=== PATIENT | male | born 1980 | race Caucasian/White ===

== ENCOUNTER 2022-10-19 21:51 | Inpatient (IN) | payer MEDICARE, SELFPAY ==
[2022-10-19 22:01] VITALS: BP 186/97; BP 208/96; PULSE 100; PULSE 97; RESP 16; TEMP 37.3; O2SAT 98; BMI 34.6
[2022-10-19 22:15] LABS: Glucose, Whole Blood 435 mg/dL (60-115)
--- NOTE | 2022-10-19 22:17 | ECG_ITS ---
Test Reason : hypertensive Blood Pressure : / mmHG Vent. Rate : 095 BPM Atrial Rate : 095 BPM P-R Int : 150 ms QRS Dur : 084 ms QT Int : 332 ms P-R-T Axes : 069 -42 055 degrees QTc Int : 417 ms Normal sinus rhythm Left axis deviation Abnormal ECG No previous ECGs available Referred By: Sid Delgadillo Electronically Signed By:NATE CHAPMAN MD
[2022-10-19 22:27] LABS: MANUAL DIFF FLAG NO
--- NOTE | 2022-10-19 22:31 | ED.PSYCH ---
HPI - Psych General Chief Complaint: Psychiatric Symptoms Stated Complaint: crisis Time Seen by Provider: 10/19/22 22:21 Source: patient Mode of arrival: EMS Limitations: no limitations History of Present Illness HPI Narrative: 42-year-old male with history of diabetes mellitus, depression, anxiety, hypothyroidism on levothyroxine, autism who presents emergency department for evaluation of suicidal ideation x2 days. The patient states that he is from [facility]. He has been traveling by train. He states that he has not been taking his medications since 10/18/2022 -2 days. He states that he started to feel suicidal over the past 2 days. He told me that he feels like he blew it since he missed his train to get back to [facility].. He states that he does not want to do it anymore . He states that he has had suicidal ideation in the past but has never acted on these thoughts. He cannot identify a trigger to his SI. He states that he has depression he believes that his depression has gotten worse as well, he is feeling very anxious and nervous. He states he has been very thirsty and is also been urinating frequently. Related Data Home Medications Medication Instructions Recorded Confirmed amlodipine 10 mg tablet 10 mg PO DAILY 10/20/22 10/20/22 aripiprazole 400 mg suspension, 400 mg IM QMONTH 10/20/22 10/20/22 extended rel.intramuscular syringe (Roxana Kaplan) atorvastatin 20 mg tablet 20 mg PO DAILY 10/20/22 10/20/22 benztropine 0.5 mg tablet 0.5 mg PO BID 10/20/22 10/20/22 buspirone 10 mg tablet 10 mg PO BID 10/20/22 10/20/22 carvedilol 25 mg tablet 25 mg PO BID 10/20/22 10/20/22 divalproex 500 mg tablet,delayed 500 mg PO TID 10/20/22 10/20/22 release hydrochlorothiazide 25 mg tablet 25 mg PO DAILY 10/20/22 10/20/22 insulin glargine 100 unit/mL (3 See Rx Instructions .Route .COMPLEX 10/20/22 10/20/22 mL) subcutaneous pen (Basaglar Adeel U-100 Insulin) levothyroxine 75 mcg tablet 75 mcg PO DAILY 10/20/22 10/20/22 lisinopril 40 mg tablet 40 mg PO DAILY 10/20/22 10/20/22 metformin 1,000 mg tablet 1,000 mg PO DAILY 10/20/22 10/20/22 pantoprazole 40 mg tablet,delayed 40 mg PO DAILY 10/20/22 10/20/22 release trazodone 50 mg tablet 50 mg PO BEDTIME 10/20/22 10/20/22 Allergies Allergy/AdvReac Type Severity Reaction Status Date / Time penicillin G benzathine Allergy Rash Verified 10/19/22 22:10 Review of Systems Review of Systems: Yes all other systems are reviewed and are negative [facility] Past Medical History [facility] Narrative: Past medical history: Diabetes mellitus, depression, anxiety, hypothyroidism, autism. Social history: He denies tobacco use. He occasionally drinks alcohol but denies using alcohol this evening. Denies drug use. Social History Social History Advance Directives: No Advance Directives Information Provided: Yes Physical Exam Vital Signs: Vital Signs: Last Vital Signs Temp 97.7 F 10/20/22 01:18 Pulse 89 10/20/22 01:18 Resp 18 10/20/22 01:18 BP 147/91 H 10/20/22 01:18 Pulse Ox 97 10/20/22 01:18 O2 Del Method Room Air 10/20/22 01:18 BMI result Body Mass Index 34.6 Const: General: cooperative and no acute distress Orientation/consciousness: oriented to person and oriented to place Limitations: no limitations HEENT: Head: Yes normal to inspection, Yes normocephalic and Yes atraumatic Ears: external ears normal General nose exam: Normal external nose present Face and sinus: Yes normal facial exam Mouth: Normal oral and palatal mucosa present Throat: Yes posterior oropharynx normal Eyes: General: appearance normal, both eyes and all related structures Pupils: Equal, round and reactive pupils present Neck: Neck: Yes normal visual inspection, Yes no lymphadenopathy, Yes trachea midline and Yes supple Chest: Chest palpation & inspection: normal inspection of the chest and normal palpation of entire chest wall Resp: Effort & Inspection: normal respiratory effort and able to speak in complete sentences Auscultation: clear to auscultation bilaterally Cardio: Rate: regular rate Rhythm: regular rhythm Heart sounds: S1 normal heart sound present, S2 normal heart sound present and no murmurs GI: Inspection: Yes normal to inspection Palpation (GI): Soft to palpation, nontender and no guarding Auscultation: normal bowel sounds : General: Yes no CVA tenderness Back/Spine/Pelvis: Back: no CVA tenderness Skin: General skin exam: no rashes or lesions noted Neuro: General: oriented to person and oriented to place Cranial nerves: Yes CN's II-XII intact bilaterally and Yes Equal, round and reactive pupils present Cognition (Neuro): normal cognition Motor exam (neuro): 5/5 motor strength present throughout Extrem: General: Yes normal to inspection Psych: Appearance: grossly normal Speech and movement: Normal speech and movement present Affect: normal affect Attitude: cooperative Thought process: Normal thought process present Thought content: Suicidality present and no homicidality Medications Administered Discontinued Medications Generic Name Dose Route Start Last Admin Trade Name Aleksandar PRN Reason Stop Dose Admin Sodium Chloride 1,000 mls @ 999 mls/hr 10/19/22 22:32 10/20/22 01:24 Ns IV 10/19/22 23:32 Infused .Q1H1M STA Infusion Sodium Chloride 1,000 mls @ 999 mls/hr 10/19/22 22:32 10/20/22 01:25 Ns IV 10/19/22 23:32 Infused .Q1H1M STA Infusion Insulin Human Regular 10 unit 10/19/22 22:32 10/19/22 22:39 Insulin Regular, Human 100 Unit/Ml 3 Ml Vial IVPUSH 10/19/22 22:33 10 unit ONCE ONE Administration Medical Decision Making Medical Decision Making MDM Narrative: 42-year-old male who presents emergency department for evaluation increased depression and suicidal ideation. Patient has been noncompliant with his medications for 2 days. He states he has had suicidal ideation in the past but has never acted on these thoughts. He does not have a specific plan at this time. He states he is feeling depressed and anxious as well. Patient's from [facility] and has been troubling by train, he states that he feels upset that he missed his train back to [facility] but this is not the trigger for his suicidal ideation. I I ordered CBC, CMP, VBG, acetone, salicylate, acetaminophen, urinalysis, urine drug screen. Patient did have an elevated point of care glucose of 435. I ordered normal saline x2L and regular insulin 10 units IV. 0049 : The patient laboratory evaluation revealed a normal pH and normal bicarb which is reassuring rules out DKA. Patient's elevated glucose is most likely caused by noncompliance with medications and dehydration/ volume depletion. Patient was treated with normal saline IV x2 L and 10 units of regular insulin. Patient's repeat point of care glucose was 273. I will order the patient's outpatient medication regimen.This point I think that the patient is medically cleared To go into the emergency department [facility] for evaluation by the care team. Start physician observation: The patient will be kept in physician observation to see if his symptoms improve over time and also until he is evaluated by the care team to determine if he can be managed as an outpatient or needs to be admitted. 0247: Continue physician observation: I ordered when of care glucose before meals and bedtime to monitor the patient's glucose. Patient's medications were reconciled and these were ordered by me. Differential Diagnosis Differential diagnosis includes was not limited to depression, anxiety, suicidal ideation, metabolic disorder, hyperthyroidism, drug use, alcohol intoxication Admission/Observation Consideration of admission/observation: Escalation of care including admission/observation considered Consult Healthcare Provider Management of the patient was discussed with: Behavioral Health Provider Lab Data [facility] Lab Attestation statement: I reviewed the patient's lab results. my independent interpretation patient's laboratory evaluation as follows: CBC was normal. CMP revealed an elevated glucose of 415. PH was normal 7.43. Acetone small amount. Salicylate and acetaminophen were below detectable limits. Urinalysis and urine drug screen pending collection. TSH was normal at 2.91. 10/19/22 22:22 10/19/22 22:22 Labs: Lab Results 10/19/22 10/19/22 10/19/22 Range/Units 22:05 22:22 22:22 WBC 8.1 (4.8-10.8) X10*3/uL RBC 4.56 L (4.60-5.80) X10*6/uL Hgb 14.0 (14.0-18.0) g/dl Hct 38.2 L (42.0-52.0) % MCV 83.8 (80.0-98.0) fL MCH 30.7 (27.0-33.0) pg MCHC 36.6 H (31.0-36.0) g/dl RDW 11.8 (11.0-16.0) % Plt Count 256 (160-400) X10*3/uL MPV 11.0 (9.4-12.4) fL Immature Gran % (Auto) 0.5 H (0.0-0.4) % Neut % (Auto) 65.5 (45-73) % Lymph % (Auto) 24.6 (20-40) % [place] % (Auto) 7.2 (2-11) % Eos % (Auto) 1.7 (0-4) % Baso % (Auto) 0.5 (0-2) % Lymph # (Auto) 2.0 (1.2-4.9) X10*3/uL [place] # (Auto) 0.6 (0.1-1.2) X10*3/uL Eos # (Auto) 0.1 (0.0-0.4) X10*3/uL Baso # (Auto) 0.0 (0.0-0.2) X10*3/uL Abs Immat Gran (auto) 0.04 H (0.00-0.03) X10*3/uL Absolute Neuts (auto) 5.3 (2.0-8.3) x10*3/uL Absolute Nucleated RBC 0.000 (0.0-0.012) X10*3/uL Nucleated RBC % (auto) 0.0 (0.0-0.2) /100WBC VBG pH (7.32-7.43) VBG pCO2 mmHg VBG pO2 mmHg VBG HCO3 (22-26) mmol/L VBG O2 Saturation % VBG Base Excess mmol/L Sodium 135 (135-145) mmol/L Potassium 4.5 (3.3-5.1) mmol/L Chloride 99 (96-108) mmol/L Carbon Dioxide 23 (22-29) mmol/L Anion Gap 18 (12-20) BUN 19 H (9-16) mg/dL Creatinine 1.27 (0.5-1.4) mg/dL Estim Creat Clear Calc 83.7 Estimated GFR > 60 POC Glucose 435 H* (60-115) mg/dL Random Glucose 415 H* (60-115) mg/dL Calcium 9.1 (8.4-10.2) mg/dL Total Bilirubin 0.7 (0.0-1.0) mg/dL AST 14 (5-37) U/L ALT 17 (0-40) U/L Alkaline Phosphatase 75 (39-117) U/L Total Protein 7.2 (6.5-8.0) g/dL Albumin 4.4 (3.5-5.0) g/dL TSH (0.32-4.0) uIU/mL Urine Color Urine Appearance Urine pH (5.0-9.0) Ur Specific [place] (1.005-1.025) Urine Protein (Neg-Trace) mg/dL Urine Glucose (UA) (Negative) mg/dL Urine Ketones (Negative) mg/dL Urine Blood (Negative) Urine Nitrite (Negative) Ur Leukocyte Esterase (Negative) Urine RBC (0-2) /HPF Urine WBC (0-5) /HPF Ur Squamous Epith Cells (0-2) /HPF Urine Bacteria (None Seen) Hyaline Casts (0-2) /LPF Salicylates (15-30) mg/dL Urine Opiates Screen (Not Detect) Urine Fentanyl Screen (Not Detect) Acetaminophen (<30) mcg/mL Ur Barbiturates Screen (Not Detect) Ur Phencyclidine Scrn (Not Detect) Ur Amphetamines Screen (Not Detect) U Benzodiazepines Scrn (Not Detect) Urine Cocaine Screen (Not Detect) U Marijuana (THC) Screen (Not Detect) Acetone, Qual (Negative) COVID-19 ([facility]) (Negative) COVID-19 Clin Com 10/19/22 10/19/22 10/19/22 Range/Units 22:47 22:47 22:50 WBC (4.8-10.8) X10*3/uL RBC (4.60-5.80) X10*6/uL Hgb (14.0-18.0) g/dl Hct (42.0-52.0) % MCV (80.0-98.0) fL MCH (27.0-33.0) pg MCHC (31.0-36.0) g/dl RDW (11.0-16.0) % Plt Count (160-400) X10*3/uL MPV (9.4-12.4) fL Immature Gran % (Auto) (0.0-0.4) % Neut % (Auto) (45-73) % Lymph % (Auto) (20-40) % [place] % (Auto) (2-11) % Eos % (Auto) (0-4) % Baso % (Auto) (0-2) % Lymph # (Auto) (1.2-4.9) X10*3/uL [place] # (Auto) (0.1-1.2) X10*3/uL Eos # (Auto) (0.0-0.4) X10*3/uL Baso # (Auto) (0.0-0.2) X10*3/uL Abs Immat Gran (auto) (0.00-0.03) X10*3/uL Absolute Neuts (auto) (2.0-8.3) x10*3/uL Absolute Nucleated RBC (0.0-0.012) X10*3/uL Nucleated RBC % (auto) (0.0-0.2) /100WBC VBG pH 7.43 (7.32-7.43) VBG pCO2 35 mmHg VBG pO2 104 mmHg VBG HCO3 24 (22-26) mmol/L VBG O2 Saturation 99.0 % VBG Base Excess 0.3 mmol/L Sodium (135-145) mmol/L Potassium (3.3-5.1) mmol/L Chloride (96-108) mmol/L Carbon Dioxide (22-29) mmol/L Anion Gap (12-20) BUN (9-16) mg/dL Creatinine (0.5-1.4) mg/dL Estim Creat Clear Calc Estimated GFR POC Glucose (60-115) mg/dL Random Glucose (60-115) mg/dL Calcium (8.4-10.2) mg/dL Total Bilirubin (0.0-1.0) mg/dL AST (5-37) U/L ALT (0-40) U/L Alkaline Phosphatase (39-117) U/L Total Protein (6.5-8.0) g/dL Albumin (3.5-5.0) g/dL TSH 2.91 (0.32-4.0) uIU/mL Urine Color Urine Appearance Urine pH (5.0-9.0) Ur Specific [place] (1.005-1.025) Urine Protein (Neg-Trace) mg/dL Urine Glucose (UA) (Negative) mg/dL Urine Ketones (Negative) mg/dL Urine Blood (Negative) Urine Nitrite (Negative) Ur Leukocyte Esterase (Negative) Urine RBC (0-2) /HPF Urine WBC (0-5) /HPF Ur Squamous Epith Cells (0-2) /HPF Urine Bacteria (None Seen) Hyaline Casts (0-2) /LPF Salicylates < 5.0 L (15-30) mg/dL Urine Opiates Screen (Not Detect) Urine Fentanyl Screen (Not Detect) Acetaminophen < 17 (<30) mcg/mL Ur Barbiturates Screen (Not Detect) Ur Phencyclidine Scrn (Not Detect) Ur Amphetamines Screen (Not Detect) U Benzodiazepines Scrn (Not Detect) Urine Cocaine Screen (Not Detect) U Marijuana (THC) Screen (Not Detect) Acetone, Qual Small H (Negative) COVID-19 ([facility]) (Negative) COVID-19 Clin Com 10/19/22 10/20/22 10/20/22 Range/Units 23:48 01:25 01:48 WBC (4.8-10.8) X10*3/uL RBC (4.60-5.80) X10*6/uL Hgb (14.0-18.0) g/dl Hct (42.0-52.0) % MCV (80.0-98.0) fL MCH (27.0-33.0) pg MCHC (31.0-36.0) g/dl RDW (11.0-16.0) % Plt Count (160-400) X10*3/uL MPV (9.4-12.4) fL Immature Gran % (Auto) (0.0-0.4) % Neut % (Auto) (45-73) % Lymph % (Auto) (20-40) % [place] % (Auto) (2-11) % Eos % (Auto) (0-4) % Baso % (Auto) (0-2) % Lymph # (Auto) (1.2-4.9) X10*3/uL [place] # (Auto) (0.1-1.2) X10*3/uL Eos # (Auto) (0.0-0.4) X10*3/uL Baso # (Auto) (0.0-0.2) X10*3/uL Abs Immat Gran (auto) (0.00-0.03) X10*3/uL Absolute Neuts (auto) (2.0-8.3) x10*3/uL Absolute Nucleated RBC (0.0-0.012) X10*3/uL Nucleated RBC % (auto) (0.0-0.2) /100WBC VBG pH (7.32-7.43) VBG pCO2 mmHg VBG pO2 mmHg VBG HCO3 (22-26) mmol/L VBG O2 Saturation % VBG Base Excess mmol/L Sodium (135-145) mmol/L Potassium (3.3-5.1) mmol/L Chloride (96-108) mmol/L Carbon Dioxide (22-29) mmol/L Anion Gap (12-20) BUN (9-16) mg/dL Creatinine (0.5-1.4) mg/dL Estim Creat Clear Calc Estimated GFR POC Glucose 275 H (60-115) mg/dL Random Glucose (60-115) mg/dL Calcium (8.4-10.2) mg/dL Total Bilirubin (0.0-1.0) mg/dL AST (5-37) U/L ALT (0-40) U/L Alkaline Phosphatase (39-117) U/L Total Protein (6.5-8.0) g/dL Albumin (3.5-5.0) g/dL TSH (0.32-4.0) uIU/mL Urine Color Yellow Urine Appearance Clear Urine pH 6.0 (5.0-9.0) Ur Specific [place] >= 1.030 H (1.005-1.025) Urine Protein 30 (1+) H (Neg-Trace) mg/dL Urine Glucose (UA) >=1000 H (Negative) mg/dL Urine Ketones 15 (Negative) mg/dL Urine Blood Trace H (Negative) Urine Nitrite Negative (Negative) Ur Leukocyte Esterase Negative (Negative) Urine RBC 0-2 (0-2) /HPF Urine WBC 0-5 (0-5) /HPF Ur Squamous Epith Cells 0-2 (0-2) /HPF Urine Bacteria None Seen (None Seen) Hyaline Casts 0-2 (0-2) /LPF Salicylates (15-30) mg/dL Urine Opiates Screen (Not Detect) Urine Fentanyl Screen (Not Detect) Acetaminophen (<30) mcg/mL Ur Barbiturates Screen (Not Detect) Ur Phencyclidine Scrn (Not Detect) Ur Amphetamines Screen (Not Detect) U Benzodiazepines Scrn (Not Detect) Urine Cocaine Screen (Not Detect) U Marijuana (THC) Screen (Not Detect) Acetone, Qual (Negative) COVID-19 ([facility]) Negative (Negative) COVID-19 Clin Com See Note 10/20/22 Range/Units 01:48 WBC (4.8-10.8) X10*3/uL RBC (4.60-5.80) X10*6/uL Hgb (14.0-18.0) g/dl Hct (42.0-52.0) % MCV (80.0-98.0) fL MCH (27.0-33.0) pg MCHC (31.0-36.0) g/dl RDW (11.0-16.0) % Plt Count (160-400) X10*3/uL MPV (9.4-12.4) fL Immature Gran % (Auto) (0.0-0.4) % Neut % (Auto) (45-73) % Lymph % (Auto) (20-40) % [place] % (Auto) (2-11) % Eos % (Auto) (0-4) % Baso % (Auto) (0-2) % Lymph # (Auto) (1.2-4.9) X10*3/uL [place] # (Auto) (0.1-1.2) X10*3/uL Eos # (Auto) (0.0-0.4) X10*3/uL Baso # (Auto) (0.0-0.2) X10*3/uL Abs Immat Gran (auto) (0.00-0.03) X10*3/uL Absolute Neuts (auto) (2.0-8.3) x10*3/uL Absolute Nucleated RBC (0.0-0.012) X10*3/uL Nucleated RBC % (auto) (0.0-0.2) /100WBC VBG pH (7.32-7.43) VBG pCO2 mmHg VBG pO2 mmHg VBG HCO3 (22-26) mmol/L VBG O2 Saturation % VBG Base Excess mmol/L Sodium (135-145) mmol/L Potassium (3.3-5.1) mmol/L Chloride (96-108) mmol/L Carbon Dioxide (22-29) mmol/L Anion Gap (12-20) BUN (9-16) mg/dL Creatinine (0.5-1.4) mg/dL Estim Creat Clear Calc Estimated GFR POC Glucose (60-115) mg/dL Random Glucose (60-115) mg/dL Calcium (8.4-10.2) mg/dL Total Bilirubin (0.0-1.0) mg/dL AST (5-37) U/L ALT (0-40) U/L Alkaline Phosphatase (39-117) U/L Total Protein (6.5-8.0) g/dL Albumin (3.5-5.0) g/dL TSH (0.32-4.0) uIU/mL Urine Color Urine Appearance Urine pH (5.0-9.0) Ur Specific [place] (1.005-1.025) Urine Protein (Neg-Trace) mg/dL Urine Glucose (UA) (Negative) mg/dL Urine Ketones (Negative) mg/dL Urine Blood (Negative) Urine Nitrite (Negative) Ur Leukocyte Esterase (Negative) Urine RBC (0-2) /HPF Urine WBC (0-5) /HPF Ur Squamous Epith Cells (0-2) /HPF Urine Bacteria (None Seen) Hyaline Casts (0-2) /LPF Salicylates (15-30) mg/dL Urine Opiates Screen Not Detected (Not Detect) Urine Fentanyl Screen Not Detected (Not Detect) Acetaminophen (<30) mcg/mL Ur Barbiturates Screen Not Detected (Not Detect) Ur Phencyclidine Scrn Not Detected (Not Detect) Ur Amphetamines Screen Not Detected (Not Detect) U Benzodiazepines Scrn Not Detected (Not Detect) Urine Cocaine Screen Not Detected (Not Detect) U Marijuana (THC) Screen Not Detected (Not Detect) Acetone, Qual (Negative) COVID-19 ([facility]) (Negative) COVID-19 Clin Com Independent Interpretation I performed an independent interpretation of an: EKG Interpretation: my interpretation of the patient's 12 EKG done at 22:36 is as follows: Normal sinus rhythm with rate of 95, normal intervals, no ST segment elevation, no ST segment depression, no T-wave abnormalities, no old EKG for comparison Discharge Plan Discharge Clinical Impression: Suicidal ideations, Depression, Noncompliance with medications, Diabetes mellitus, Blood glucose elevated Patient Disposition: Still a Patient Prescriptions: No Action trazodone 50 mg tablet 50 mg PO BEDTIME divalproex 500 mg tablet,delayed release (DR/EC) 500 mg PO TID metformin 1,000 mg tablet 1,000 mg PO DAILY buspirone 10 mg tablet 10 mg PO BID insulin glargine [Basaglar KwikPen U-100 Insulin] 100 unit/mL (3 mL) insulin pen See Rx Instructions .ROUTE .COMPLEX Rx Instructions: am and bedtime carvedilol 25 mg tablet 25 mg PO BID atorvastatin 20 mg tablet 20 mg PO DAILY benztropine 0.5 mg tablet 0.5 mg PO BID levothyroxine 75 mcg tablet 75 mcg PO DAILY amlodipine 10 mg tablet 10 mg PO DAILY pantoprazole 40 mg tablet,delayed release (DR/EC) 40 mg PO DAILY hydrochlorothiazide 25 mg tablet 25 mg PO DAILY lisinopril 40 mg tablet 40 mg PO DAILY Abilify Maintena 400 mg suspension,extended rel syring 400 mg IM QMONTH Interventions: [place]-Suicide Risk Severity Scale Last Done: 10/20/22 01:07
[2022-10-19 22:34] LABS: Basophils Percent Auto 0.5 % (0-2); Eosinophils Absolute Auto 0.1 X10*3/uL (0.0-0.4); Eosinophils Percent Auto 1.7 % (0-4); Hematocrit 38.2 % (42.0-52.0); Imm Gran Abs Auto 0.04 X10*3/uL (0.00-0.03); Imm Gran Pct Auto 0.5 % (0.0-0.4); Lymphocytes Percent Auto 24.6 % (20-40); Mean Corpuscular HGB Conc 36.6 g/dl (31.0-36.0); Mean Corpuscular Hemoglobin 30.7 pg (27.0-33.0); Mean Corpuscular Volume 83.8 fL (80.0-98.0); Monocytes Absolute Auto 0.6 X10*3/uL (0.1-1.2); Monocytes Percent Auto 7.2 % (2-11); Neutrophils Absolute Auto 5.3 x10*3/uL (2.0-8.3); Neutrophils Percent Auto 65.5 % (45-73); Platelet Count 256 X10*3/uL (160-400); Red Blood Count 4.56 X10*6/uL (4.60-5.80); Red Cell Distribution Width 11.8 % (11.0-16.0); White Blood Count 8.1 X10*3/uL (4.8-10.8)
[2022-10-19] MEDS: 0.9 % Sodium Chloride 1,000 ML 999 ML IV ×2 (22:38→22:39)
[2022-10-19] MEDS: Insulin Regular, Human 100 UNIT/ML 3 ML VIAL 10 UNIT IVPUSH (22:39)
[2022-10-19 22:52] LABS: Alanine Aminotransferase 17 U/L (0-40); Albumin Level 4.4 g/dL (3.5-5.0); Alkaline Phosphatase 75 U/L (39-117); Anion Gap 18 (12-20); Aspartate Amino Transferase 14 U/L (5-37); Bilirubin Total 0.7 mg/dL (0.0-1.0); Blood Urea Nitrogen 19 mg/dL (9-16); Calcium 9.1 mg/dL (8.4-10.2); Carbon Dioxide 23 mmol/L (22-29); Chloride 99 mmol/L (96-108); Creatinine Clr Calc Pharmacy 83.7; Estimated Glomerular Filt Rate > 60; Glucose Random 415 mg/dL (60-115); Potassium 4.5 mmol/L (3.3-5.1); Sodium 135 mmol/L (135-145); Total Protein 7.2 g/dL (6.5-8.0)
--- NOTE | 2022-10-19 22:53 | MHC.EDTECH ---
EKG WAS DONE THIS IS A Duplicate order
[2022-10-19 22:59] LABS: VBG Base Excess 0.3 mmol/L; VBG HCO3 24 mmol/L (22-26); VBG pCO2 35 mmHg; VBG pH 7.43 (7.32-7.43); VBG pO2 104 mmHg
[2022-10-19 23:13] LABS: Venous Blood Gas Refer to POC result
[2022-10-19 23:14] LABS: Acetaminophen LAB < 17 mcg/mL (<30); Salicylate < 5.0 mg/dL (15-30)
[2022-10-19 23:31] LABS: TSH reflex Free T4 2.91 uIU/mL (0.32-4.0)
[2022-10-20 00:15] LABS: Acetone, serum QL Small (Negative)
--- NOTE | 2022-10-20 00:31 | PC.NURSE ---
this rn assumed care of pt @ 2200. pt reports to this rn SI. 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 per security belongings searched and pt okay to keep belongings. 1:[address] iv line placed dr bauer at bedside. bloodwork obtained and sent down to lab
[2022-10-20 00:51] LABS: Glucose, Whole Blood 275 mg/dL (60-115)
[2022-10-20 01:18] VITALS: BP 147/91; PULSE 89; RESP 18; TEMP 36.5; O2SAT 97
--- NOTE | 2022-10-20 01:38 | PC.NURSE ---
Patient just got transferred from main ED, independent ambulation, medically cleared/diabetic patient, care consult ordered for suicidality, pending evaluation, responses delayed/coherent, med rec completed/pending provider's approval, VSS, will continue to monitor.
[2022-10-20 01:43] LABS: COVID-19 Test Negative (Negative); IDNOW Serial# 6674DD1D
--- NOTE | 2022-10-20 01:59 | MHC.EDTECH ---
Urine collected and sent to lab
[2022-10-20 02:03] LABS: Appearance Urine Clear; Color Urine Yellow; Glucose Urine UA >=1000 mg/dL (Negative); Leukocyte Esterase Urine Negative (Negative); Nitrite Urine Negative (Negative); Specific Gravity - Urine >= 1.030 (1.005-1.025); UMIC TRIGGER UACC YES; Urine Blood Trace (Negative); Urine Ketones 15 mg/dL (Negative); Urine Protein 30 (1+) mg/dL (Neg-Trace)
[2022-10-20 02:08] LABS: Bacteria Urine None Seen (None Seen); Hyaline Casts Urine 0-2 /LPF (0-2); RBC Urine 0-2 /HPF (0-2); Squamous Epithelial Cell Urine 0-2 /HPF (0-2); WBC Urine 0-5 /HPF (0-5)
[2022-10-20 02:15] LABS: Amphetamine Screen Urine Not Detected (Not Detect); Barbiturates, Urine Not Detected (Not Detect); Benzodiazepines Screen Urine Not Detected (Not Detect); Cannabinoid Screen Urine Not Detected (Not Detect); Cocaine Screen Urine Not Detected (Not Detect); Fentanyl, urine Not Detected (Not Detect); Opiate Screen Urine Not Detected (Not Detect); Phencyclidine Screen Urine Not Detected (Not Detect)
[2022-10-20 07:02] LABS: Glucose, Whole Blood 246 mg/dL (60-115)
[2022-10-20] MEDS: Levothyroxine Sodium 75 MCG TABLET PO (08:22)
[2022-10-20] MEDS: amLODIPine Besylate 10 MG TABLET PO (08:23)
[2022-10-20] MEDS: metFORMIN HCl 1,000 MG TABLET 1000 MG PO (08:23)
[2022-10-20] MEDS: Omeprazole 20 MG CAPSULE.DR PO (08:23)
[2022-10-20] MEDS: Atorvastatin Calcium 20 MG TABLET PO (08:23)
[2022-10-20] MEDS: carvediloL 25 MG TABLET PO ×2 (08:24→20:14)
[2022-10-20] MEDS: busPIRone HCl 10 MG TABLET PO ×2 (08:24→20:14)
[2022-10-20] MEDS: hydroCHLOROthiazide 25 MG TABLET PO (08:25)
[2022-10-20] MEDS: Divalproex Sodium 500 MG TABLET.DR PO ×3 (08:25→20:14)
[2022-10-20] MEDS: Benztropine Mesylate 0.5 MG TABLET PO ×2 (08:25→20:14)
[2022-10-20] MEDS: lisinopriL 40 MG TABLET PO (08:25)
[2022-10-20 08:33] VITALS: BP 186/104; PULSE 87; RESP 20; TEMP 36.7; O2SAT 96
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
--- NOTE | 2022-10-20 09:49 | PHA.MEDREC ---
Pharmacy Consult ? Medication Reconciliation Pharmacy has completed the medication reconciliation. Spoke to patient to confirm meds. Called pharmacy to confirm dosages on benztropine, basaglar, and novolog. Pharmacy states patient filled Novolog 14 units TIDAC, benztropine 1.5mg BID, and Basaglar 80 units at bedtime. However, patient states that they have changed basaglar dosage from 80 units at bedtime to 80 units twice daily.
[2022-10-20 13:24] LABS: Glucose, Whole Blood 324 mg/dL (60-115)
[2022-10-20 16:48] LABS: Glucose, Whole Blood 395 mg/dL (60-115)
[2022-10-20] MEDS: Insulin Lispro 100 UNIT/ML 3 ML VIAL 14 UNIT SUBCUT (16:52)
--- NOTE | 2022-10-20 18:44 | PC.NURSE ---
Pt eating dinner at this time. No dangerous behaviors noted.
[2022-10-20 20:11] VITALS: BP 157/89; PULSE 79; RESP 18; TEMP 36.4; O2SAT 98
[2022-10-20] MEDS: Insulin Glargine,Hum.rec.anlog 100 UNIT/ML 10 ML VIAL 80 UNIT SUBCUT (20:15)
[2022-10-20] MEDS: traZODone HCL 50 MG TABLET PO (20:22)
[2022-10-20 20:28] LABS: Glucose, Whole Blood 352 mg/dL (60-115)
--- NOTE | 2022-10-20 21:20 | PC.NURSE ---
POC @ 2019 was 352/provider notified @ 2029/awaiting order/Scheduled Lantus 80 units administered as ordered, patient is pre-accepted to [facility], will continue to monitor.
[2022-10-20] MEDS: Insulin Lispro 100 UNIT/ML 3 ML VIAL SUBCUT (21:34)
[2022-10-20 22:39] LABS: Glucose, Whole Blood 367 mg/dL (60-115)
[2022-10-20] MEDS: Insulin Lispro 100 UNIT/ML 3 ML VIAL 10 UNIT SUBCUT (22:49)
--- NOTE | 2022-10-20 22:51 | PC.NURSE ---
Follow up POC was 367 @ 8755, provider notified/ordered Lispro 10 units @ 0491, patient compliant
--- OUTSIDE RECORDS SUMMARY | 2022-10-20 23:14 | XMS_ITS | Continuity of Care Document ---
Author Name Unknown Organization [facility] Address [address] [place] [address] Encounter Date(s): 10/17/22 - 10/17/[address] [address] Encounter Diagnosis Autistic spectrum disorder(Discharge Diagnosis) - 10/17/22 Hyperglycemia(Discharge Diagnosis) - 10/17/22 Discharge Disposition: Home or Self Care Attending Physician: Francisco SERRANO, Terrence Madera Allergies, Adverse Reactions, Alerts Substance Reaction Severity Status penicillins Mild Active Assessment and Plan Diagnostic Tests Pending * Urine Culture 10/17/22 Mental Status 10/17/22 Eye Opening Response [place] Spontaneous Best Verbal Response [place] Oriented Best Motor Response [place] Obeys comman ds [place] Coma Score 15 Problem List Condition Confirmation Course Effective Dates Status H ealth Status Informant Anxiety Confirmed Active Autistic spectrum disorder Confirmed Active Depressive disorder Confirmed Active DM - Diabetes mellitus Confirmed Active HLD - Hyperlipidemia Confirmed Active HTN - Hypertension Confirmed Active Hyperglycemia Confirmed Active Results Laboratory List Name Date Glucose Level (POCT) 10/17/22 Glucose Level (POCT) 10/17/22 Glucose Level (POCT) 10/17/22 COVID-19/FLU A & B/RSV RT-PCR Cepheid (M HRH STAT) 10/17/22 Alcohol Level (Ethanol Level) 10/17/22 CBC w/ Auto Diff 10/17/22 Comprehensive Metabolic Panel (CMP) Drug Screen Urine 10/17/22 Urinalysis with Microscopic 10/17/22 Most recent to oldest [Reference Range]: 1 2 3 WBC [4.00-10.50 k/mm3] 8.49 k/mm3 (10/17/22 12:45 AM) RBC [3.80-5.20 m/mm3] 4.31 m/mm3 (10/17/22 12:45 AM) BUN [7-17 mg/dL] 32 mg/dL *HI* (10/17/22 12:45 AM) Baso Absolute [0.00-0.30 k/mm3] 0.07 k/mm3 (10/17/22 12:45 AM) MCV [80.0-98.0 fL] 85.8 fL (10/17/22 12:45 AM) MCHC [32.0-36.0 %] 36.2 % *HI* (10/17/22 12:45 AM) Lymph Absolute [0.60-4.80 k/mm3] 2.70 k/mm3 (10/17/22 12:45 AM) Hct [36.0-46.0 %] 37.0 % (10/17/22 12:45 AM) Tucker Absolute [0.00-1.10 k/mm3] 0.63 k/mm3 (10/17/22 12:45 AM) MCH [26.0-34.0 pg] 31.1 pg (10/17/22 12:45 AM) Hgb [11.4-15.1 g/dL] 13.4 g/dL (10/17/22 12:45 AM) MPV [8.5-13.0 fL] 12.0 fL (10/17/22 12:45 AM) Eos Absolute [0.00-0.50 k/mm3] 0.28 k/mm3 (10/17/22 12:45 AM) RDW [11.0-15.0 %] 11.9 % (10/17/22 12:45 AM) Alkaline Phosphatase [38-126 U/L] 79 U/L (10/17/22 12:45 AM) Chloride [98-107 mmol/L] 90 mmol/L *LOW* (10/17/22 12:45 AM) Platelet Count [150-400 k/mm3] 250 k/mm3 (10/17/22 12:45 AM) Albumin [3.5-5.0 g/dL] 4.1 g/dL (10/17/22 12:45 AM) Appearance: [Clear] Clear (10/17/22 12:45 AM) Total Protein [6.3-8.2 g/dL] 7.0 g/dL (10/17/22 12:45 AM) ALT [4-34 U/L] 22 U/L (10/17/22 12:45 AM) AST [14-36 U/L] 21 U/L (10/17/22 1245 AM) Calcium [8.4-10.2 mg/dL] 9.4 mg/dL (10/17/22 12:45 AM) CO2 [22-30 mmol/L] 27 mmol/L (10/17/22 1245 AM) Glucose [74-106 mg/dL] 530 mg/dL *CRIT* (10/17/22 1245 AM) Potassium [3.5-5.1 mmol/L] 5.2 mmol/L *HI* (10/17/22 12:45 AM) Sodium [137-145 mmol/L] 127 mmol/L *LOW* (10/17/22 1245 AM) Blood Alcohol [NOT DETECTED mg/dL] NOT DETECTED mg/dL 1 (10/17/22 12:45 AM) Absolute Neutrophil Count Automated [2.00-8.40 k/mm3] 4.76 k/mm3 (10/17/22 12:45 AM) Basophils [0.0-1.0 %] 0.8 % (10/17/22 12:45 AM) Eosinophils [0.0-7.0 %] 3.3 % (10/17/22 12:45 AM) IG % [0.0-0.5 %] 0.6 % *HI* (10/17/22 12:45 AM) Lymphocytes [14.0-44.0 %] 31.8 % (10/17/22 12:45 AM) Monocytes [0.0-12.0 %] 7.4 % (10/17/22 12:45 AM) Neutrophils [50.0-80.0 %] 56.1 % (10/17/22 12:45 AM) Nucleated RBC 0.0 /100(WBCs) (10/17/22 12:45 AM) Total Bilirubin [0.2-1.3 mg/dL] 0.6 mg/dL (10/17/22 12:45 AM) eGFR >60 (10/17/22 12:45 AM) eGFR Non- [>=60 mL/min/] 51 (10/17/22 12:45 AM) Glucose POC Result [70-105 mg/dL] 311 mg/dL *HI* (10/17/22 9:16 AM) 283 mg/dL *HI* (10/17/22 5:29 AM) 355 mg/dL 2 *CRIT* (10/17/22 3:01 AM) Icteric Index <2 (10/17/22 12:45 AM) Ketones, Urine [Negative mg/dL] 5 mg/dL *ABN* (10/17/22 12:45 AM) Urine Amphetamine/Metamphetamine [Negative] Negative (10/17/22 12:45 AM) Urine Barbiturate [Negative] Negative (10/17/22 12:45 AM) Urine Benzodiazepine [Negative] Negative (10/17/22 12:45 AM) Urine Cannabinoids [Negative] Negative 3 (10/17/22 12:45 AM) Urine Cocaine Metabolite [Negative] Negative (10/17/22 12:45 AM) Urine Methadone [Negative] Negative (10/17/22 12:45 AM) Urine Opiates [Negative] Negative (10/17/22 12:45 AM) Urine Phencyclidine [Negative] Negative (10/17/22 12:45 AM) Specific [place] [1.003-1.030] 1.010 (10/17/22 12:45 AM) Blood [Negative mcL] Negative mcL (10/17/22 12:45 AM) Protein Qualitative [Negativ e mg/dL] Negative mg/dL (10/17/22 12:45 AM) pH Urine [5.0-8.0] 7.0 (10/17/22 12:45 AM) Glucose Urine [Negative mg/dL] 1000 mg/dL *ABN* (10/17/22 12:45 AM) Nitrites [Negative] Negative (10/17/22 12:45 AM) Leukocytes Esterase [Negative] Negative (10/17/22 12:45 AM) Urobilinogen [Normal mg/dL] Normal mg/dL (10/17/22 12:45 AM) Hemolysis Index (HEMIX) No hemolysis (10/17/22 12:45 AM) Estimated Creatinine Clearance 96.58 mL/min 4 (10/17/22 2:21 AM) IG# (AUTO) [0.00-0.10 k/mm3] 0.05 k/mm3 (10/17/22 12:45 AM) Urine Oxycodone [Negative] Negative (10/17/22 12:45 AM) Urine Bilirubin [Negative mg/dL] Negative mg/dL (10/17/22 12:45 AM) SARS-COV-2 RNA RT-PCR [Not Detected] Not Detected 5 (10/17/22 2:06 AM) Source HUMANE AGENT Swab (10/17/22 2:06 AM) Creatinine [0.52-1.04 mg/dL] 1.15 mg/dL *HI* (10/17/22 12:45 AM) Color [Yellow] Pale Yel (10/17/22 12:45 AM) 1Result Comment: Limit of detection: 10mg/dL Chain of custody procedures are not in place when obtaining sample; thus, result is to be used for medical purposes only and cannot be used for the workplace or for legal purposes. 2Result Comment: MD notified 3Result Comment: These drugs of abuse tests provide only a preliminary analytical test result. A more specific alternate chemical method must used to obtain a confirmed analytical result. GC/MS or HPLC is the preferred confirmatory method. Clinical consideration and professional judgement should be applied to any drug of abuse test result, particularly when preliminary results only are obtained. This test cannot be used for the workplace or for legal purposes. UDS cutoff values are: Amphetamines 1000 ng/mL Barbiturates 200 ng/mL Benzodiazepines 200 ng/mL Cocaine 300 ng/mL Methadone 300 ng/mL Opiates (Morphine) 300 ng/mL Oxycodone 100 ng/mL Phencyclidine 25 ng/mL THC Cannabinoid Metabolite(s) 50 ng/mL 4Result Comment: Calculated using method: Cockroft-Gault (Actual Weight) 5Result Comment: This is a RT-PCR test intended for qualitative detection of nucleic acid from Severe Acute Respiratory Syndrome Coronavirus 2 (SARS-CoV-2), in nasopharyngeal swabs and nasal swabs. The test was performed using the Cepheid Xpert Xpress SARS-CoV-2 plus assay at the [facility], Virology Laboratory under the Food and Drug Administration???s Emergency Use Authorization (EUA). Test performance characteristics are verified by the laboratory, which is certified under the Clinical Laboratory Improvement Amendments of 1988 (CLIA), 42 U.S.C. ?? 263a, to perform high complexity testing. Results from this test must be correlated with the clinical, epidemiological and other laboratory data available for evaluating the patient. A positive result does not imply that the corresponding organisms are infectious, or are the causative agents for clinical symptoms since viral nucleic acids may persist independent of organism viability. The detection of analyte(s) does not rule out co-infection with other organisms. Negative results in the setting of a respiratory illness may be due to infection with pathogens that are not detected by this test, lower respiratory tract infection, improper specimen collection, transport, or handling. For Invalid Results, the Specimen does not meet acceptance criteria, and the presence or absence of SARS-CoV-2 nucleic acids cannot be determined. A new specimen can be submitted, if clinically indicated. Vital Signs Most recent to oldest [Reference Range]: 1 2 3 Height/Length Measured 170 cm (10/17/22 12:48 AM) Weight Measured 98 kg (10/17/22 12:48 AM) Body Mass Index Measured 33.91 kg/m2 (10/17/22 12:48 AM) Heart Rate Monitored [60-115 bpm] 78 bpm (10/17/22 7:01 AM) 81 bpm (10/17/22 5:28 AM) 77 bpm (10/17/22 12:48 AM) Respiratory Rate [13-25 br/min] 19 br/min (10/17/22 7:01 AM) 19 br/min (10/17/22 12:48 AM) Blood Pressure [100-130/60-85 mmHg] 146/84mmHg *HI* (10/17/22 7:01 AM) 156/85mmHg *>HHI* (10/17/22 5:28 AM) 132/80mmHg *HI* (10/17/22 12:48 AM) SpO2 [92-100 %] 96 % (10/17/22 7:01 AM) 96 % (10/17/22 5:28 AM) 99 % (10/17/22 12:48 AM) Social History Social History Type Response Smoking Status Never (less than 100 in lifetime) entered on: 10/17/22 Sex Male Hospital Discharge Instructions Patient Education 10/17/2022 08:29:59 Autism Spectrum Disorder and Education Autism Spectrum Disorder and Education Autism spectrum disorder (ASD) is a group of developmental disorders that affect the way a child learns, communicates, interacts with others, and behaves. The condition starts in residential building inspector and continues throughout life. Children usually do not outgrow ASD. ASD includes a wide range of symptoms, and each child is affected differently. Some children with ASD have above-average intelligence. Others have severe intellectual disabilities. Some children can do or learn to do most activities. Other children need a lot of help. How can this condition affect my child at school? ASD can make it hard for your child to learn at school. This might cause your child to fall behind at school or have other problems at school. What can increase my child's risk of problems at school? The risk of problems at school depends on your child's symptoms and how severe they are. Your childmay have trouble doing the work needed to perform at their grade level. The following are ASD symptoms that can put your child at risk for problems at school: ??? Social and communication problems, such as: ??? Not being able to communicate with language. ??? Not being able to make eye contact or interact with teachers and other students. ??? Not using words or using words incorrectly. ??? Limited social skills and interests. ??? Behavioral problems, such as: ??? Repeating sounds and certain behaviors over and over (repetitive behaviors). This can be disruptive in a classroom. ??? Having trouble focusing and concentrating on the educational and social activities of school rather than other specific interests. ??? Having trouble controlling emotions. Children with ASD may have angry or emotional outbursts inthe stress of a school environment. ??? Issues caused by other conditions, such as ADHD, or associated learning disabilities. What actions can I take to prevent my child from having problems at school? If your child has ASD, your child has the right to receive help. It is best to start treatment as soon as possible (early intervention). The Individuals with Disabilities Education Act (IDEA) guarantees your child access to early intervention from age 3 through the end of high school. This includesan Individualized Education Plan (IEP) developed by a team of education providers who specialize inworking with students who have ASD. Your child's IEP may include: ??? Educational goals based on your child's strengths and weaknesses. ??? Detailed plans for reaching those goals. ??? A plan to put your child in a program that is as close to a regular school environment as possible (least restrictive environment). ??? Special education classes, if necessary. ??? A plan to meet your child's social and emotional needs along with educational needs. Learn as much as you can about how ASD is affecting your child. Also, make sure you know what services are available for your child at school. Advocate for your child and take an active role in the education assistance plan. Your child's IEP may need to be reviewed and adjusted each year. Where to find support For more support, talk to: ??? Your child's team of health care providers. ??? Your child's teachers. ??? Your child's therapist or psychologist. ??? Education disability advocacy organizations in your state to advise and support you and your child. Where to find more information Go to the following websites to learn more about educational issues for children with ASD: ??? Autism Speaks: www.autismspeaks.org ??? Autism Society: autism-society.org ??? [place] [employer]: www.healthychildren.org Summary ??? ASD includes a wide range of symptoms, and each child is affected differently. ??? ASD can make it hard for your child to learn at school, which might cause your child to fall behind at school. ??? The risk of problems at school depends on your child's symptoms and how severe they are. ??? If your child has ASD, your child has the right to receive help. ??? Advocate for your child and take an active role in the education assistance plan. This information is not intended to replace advice given to you by your health care provider. Make sure you discuss any questions you have with your health care provider. Document Revised: 05/02/2020 Document Reviewed: 05/02/2020 Elsevier Patient Education ?? 2021 [employer] Follow Up Care 10/17/2022 00:23:44 With:your PCP Address: When:3 to 5 days
--- OUTSIDE RECORDS SUMMARY | 2022-10-20 23:14 | XMS_ITS | Continuity of Care Document ---
Author Name Unknown Organization [facility] Address [address] [place] [id number] Care Team Providers Care Coding Clerks Supervisor Name Role Phone DUONG SERRANO, MARCOS Lopez Primary Care Physician Encounter [facility] Pool [id number] Date(s): 11/30/21 - 11/30/[address] [address] Encounter Diagnosis Adjustment disorder(Discharge Diagnosis) - 11/30/21 Discharge Disposition: 01 Home Attending Physician: CICI RHOADES Admitting Physician: CICI RHOADES Allergies, Adverse Reactions, Alerts Substance Reaction Severity Status penicillin Rash Active Assessment and Plan Extracted from: Title:ECC Dictation Author:CICI RHOADES ate:11/30/21 Impression and Plan Male patient presenting with concerns that he is out of control and overly anxious. No physical complaints or indication of underlying medical pathology. We'll request behavioral evaluation and appreciate their input in a safe disposition plan. Immunizations Given and Recorded Vaccine Date Status Refusal Reason SARS-CoV-2 (COVID-19) mRNA-1273 vaccine 04/28/21 R ecorded SARS-CoV-2 (COVID-19) mRNA-1273 vaccine 07/26/20 R ecorded SARS-CoV-2 (COVID-19) mRNA-1273 vaccine 06/28/20 R ecorded Medications Abilify Maintena 400 mg intramuscular injection, extended release 400 MG, INTRAMUSCULAR, Once a month, Per pt. last injection was just before . Start Date: 11/30/21 Status: Ordered aspirin (ASPIRIN-LOW) 81 mg oral delayed release tablet 81 MG = 1 TAB, PO, QDay Start Date: 11/30/21 Status: Ordered benztropine 1 mg oral tablet 3 MG = 3 TAB, PO, BID Start Date: 11/30/21 Status: Ordered busPIRone 10 mg oral tablet 10 MG = 1 TAB, PO, TID Start Date: 11/30/21 Status: Ordered Colace 100 mg oral capsule 100 MG = 1 CAP, PO, QDay Start Date: 11/30/21 Status: Ordered Coreg 6.25 mg oral tablet 6.25 MG = 1 TAB, PO, BID Start Date: 11/30/21 Status: Ordered Depakote ER 500 mg oral tablet, extended release 500 MG = 1 TAB, PO, TID Start Date: 11/30/21 Status: Ordered insulin glargine (BASAGLAR) - long acting 100 units/mL subcutaneous solution 76 Unit, SQ, BID Start Date: 11/30/21 Status: Ordered levothyroxine 75 mcg (0.075 mg) oral tablet 75 MCG = 1 TAB, PO, QDay, 0 Refill(s) Start Date: 11/30/21 Status: Ordered Lipitor 20 mg oral tablet 20 MG = 1 TAB, PO, Bedtime Start Date: 11/30/21 Status: Ordered lisinopril 20 mg oral tablet 20 MG = 1 TAB, PO, QDay Start Date: 11/30/21 Status: Ordered metformin 1000 mg oral tablet 1,000 MG = 1 TAB, PO, BIDWM Start Date: 11/30/21 Status: Ordered Norvasc 5 mg oral tablet 5 MG = 1 TAB, PO, Bedtime Start Date: 11/30/21 Status: Ordered NovoLOG FlexPen 100 units/mL injectable solution 12 Unit, SQ, AC Start Date: 11/30/21 Status: Ordered trazodone 100 mg oral tablet 100 MG = 1 TAB, PO, Bedtime Start Date: 11/30/21 Status: Ordered Vascepa 1 g oral capsule 2 GM = 2 CAP, PO, BID Start Date: 11/30/21 Status: Ordered Problem List Diagnosis Diagnosis Type Effective Dates Health Status Clinical Service Informant Adjustment disorder Discharge Diagnosis 11/30/21 Non-Specified Vital Signs Most recent to oldest [Reference Range]: 1 Temperature Oral [35.8-37.3 DegC] 37.5 D egC *HI* (11/30/21 1:35 AM) Peripheral Pulse Rate [60-100 bpm] 88 bp m (11/30/21 6:34 AM) Respiratory Rate [14-20 br/min] 16 br/mi n (11/30/21 6:34 AM) Blood Pressure [90-140/60-90 mmHg] 176/8 8mmHg *HI* (11/30/21 6:34 AM) Dosing Weight 86.36 KG (11/30/21 1:35 AM) Social History Social History Type Response Smoking Status Never smoker Sex Male Physician Emergency department Note * CICI RHOADES: PERFORM CICI RHOADES: PERFORM, MODIFY CICI RHOADES: MODIFY, SIGN CICI RHOADES: SIGN, VERIFY Event Display: ED Note-Physician Authored Date: [id number] Patient: MARCELLO SAUCEDA Age: 41 years Sex: MALE : 1980 Author: CICI RHOADES Attachments: None Basic Information Time seen: 11/30/21 02:29:02. Pt Identification: ID bracelet was verified for correct name and .. Mode of Arrival: EMS. Ambulance Treatment FORKLIFT DRIVER: None. PCP: MARCOS WATTERS MD. History of Present Illness Chief Complaint: I feel unstable . HPI: 41-year-old male patient reports a history of depression, anxiety, hypertension, diabetes presenting with concerns that he is unstable. States he has been feeling increasingly anxious and like his thoughts are disorganized. He believes he may not be taking his medications correctly since a recent mental health hospitalization several weeks ago for the same. He denies any suicidality, homicidality, hallucinations or delusions. Offers no physical complaints.. Review of Systems All other systems are negative except as noted in the HPI. Past Medical/ Family/ Social History Medical history: Cardiac: Hypertension, Diabetic, Depression, anxiety. Surgical history: Negative. Family history: Patient cannot recall. Social history: Reviewed as documented in chart, Tobacco history Never smoker, Alcohol history No. Medications: Reviewed, busPIRone 10 mg oral tablet(buspirone) TID PO 1 TAB 10 MG Abilify Maintena 400 mg intramuscular injection, extended release(aripiprazole) Once a month INTRAMUSCULAR 400 MG trazodone 100 mg oral tablet(traZODONE) Bedtime PO 1 TAB 100 MG lisinopril 20 mg oral tablet(lisinopril) QDay PO 1 TAB 20 MG Norvasc 5 mg oral tablet(amlodipine) Bedtime PO 1 TAB 5 MG aspirin (ASPIRIN-LOW) 81 mg oral delayed release tablet(aspirin) QDay PO 1 TAB 81 MG insulin glargine (BASAGLAR) - long acting 100 units/mL subcutaneous solution(insulin glargine) BID SQ 76 Unit Colace 100 mg oral capsule(docusate) QDay PO 1 CAP 100 MG levothyroxine 75 mcg (0.075 mg) oral tablet(levothyroxine) QDay PO 1 TAB 75 MCG Lipitor 20 mg oral tablet(atorvastatin) Bedtime PO 1 TAB 20 MG Vascepa 1 g oral capsule(icosapent) BID PO 2 CAP 2 GM Coreg 6.25 mg oral tablet(carvedilol) BID PO 1 TAB 6.25 MG metformin 1000 mg oral tablet(metformin) BIDWM PO 1 TAB 1,000 MG benztropine 1 mg oral tablet(benztropine) BID PO 3 TAB 3 MG Depakote ER 500 mg oral tablet, extended release(divalproex sodium) TID PO 1 TAB 500 MG NovoLOG FlexPen 100 units/mL injectable solution(insulin aspart) AC SQ 12 Unit. Allergies: Reviewed, penicillin. Old Records: Reviewed. Nursing Notes: Nursing notes reviewed. Physical Examination Vital signs Peripheral Pulse Rate 99 bpm Respiratory Rate 18 br/min Systolic Blood Pressure 184 mmHg HI Diastolic Blood Pressure 110 mmHg HI Mean Arterial Pressure 135 mmHg Oxygen Saturation 97 % Oxygen Mode Room Air Temperature Oral 37.5 DegC HI Peripheral Pulse Rate 102 bpm HI Respiratory Rate 16 br/min Systolic Blood Pressure 168 mmHg HI Diastolic Blood Pressure 101 mmHg HI Oxygen Saturation 96 % Oxygen Mode Room Air Dosing Weight 86.36 KG Height/Length Measured 170.18 cm . Exam:General: Awake, alert, appears to be in no acute distress. HEENT: Head normcephalic, atraumatic. No conjunctival injection. EOMI. Trachea midline. Cardiovascular: Extremities warm and well perfused. Pulmonary: Respirations unlabored Musculoskeletal: No gross deformities appreciated. Skin: Warm, dry, no rashes. Neuro: Alert, CN II-XII grossly intact. Sensation and motor function of extremities intact. Psych: Appropriate mood and affect. Calm and cooperative. Denies SI or HI. No obvious hallucinations or delusions. Speech is unpressured.. Impression and Plan Male patient presenting with concerns that he is out of control and overly anxious. No physical complaints or indication of underlying medical pathology. We'll request behavioral evaluation and appreciate their input in a safe disposition plan. Medical Decision Making Reassessment Behavioral health evaluation completed and patient determined to be stable for discharge home. Follow-up will be with outpatient providers in [place]. Patient is comfortable with this plan. Patient verbalized understanding of appropriate home care, follow-up, and return precautions prior to dischargefrom the emergency department. Diagnosis Adjustment disorder Condition: Improved stable Discharge to: Home Follow up with MARCOS WATTERS Within 5 to 7 days Follow-up with your primary care provider and psychiatrist back in [place] Take your medications as prescribed Return to ED if symptoms worsen Patient was given the following educational materials Taking an Active Role in Your Medicines Disclaimer This note was partially generated using voice recognition system, and there may be some incorrect words, spellings, and punctuation that were not noted in checking the note before saving. Electronically Signed by: CICI RHOADES 11/30/2021 06:03 AM Electronically Signed by: ADI BRAUN MD 11/30/2021 06:47 AM Care Team Care Team Personnel Name: MARCOS WATTERS MD Position: Physician - Outpatient Member Role: Primary Care Physician Address: [place] [address]- Care Team Related Persons Name: EMIR CARDENAS Name: ANGELICA MEHTA
[2022-10-20 23:27] VITALS: BP 162/85; PULSE 68; RESP 16; TEMP 36.4; O2SAT 99
[2022-10-20 23:28] VITALS: BMI 33.4
--- NOTE | 2022-10-21 02:16 | PC.ADMIT ---
admission for 10/20/22-this is the first [facility] admission for this 42 year old male. legal: CV. dx: unspecified bipolar d/o, unspecified anxiety + depressive d/o, autism spectrum disorder. patient was a referral from the [facility] ER after assessment by the CARE team. nurse to nurse, collateral information obtained prior to admission. actively participated in assessment process. presents with depressed mood + affect. denies SI/HI. no A/V hallucinations. endorses ''feeling depressed'' reports multiple hospitalizations in his [place] patient when questioned as to how he came to [facility] patient relayed a lengthy story that started out last Saturday in which he reported he had seen a [employer] game with a friend. he then stayed with his friend at his nieces house. on when the friends niece was to drive them home he did not want to go. patient called his mother later (identified as his guardian) and Mom purchased him a train ticket. the train went to [place], from [place] it went to [facility]. when in [place] he decided to go to the mall, stay in a hotel in [place]. (he reports the police gave his a courtesy ride to the hotel) while at the hotel he became increasingly depressed then started to walk down [address] and passes [facility] in which he tried to get admitted. he then called an ambulance that brought him to [facility]. his mother is aware he is here. he reports wanting to ''get back on my medications'' no drug/alcohol issues. medical: IDDM, HTN, hyperlipidemia, gerd. oriented to unit. safety tool completed. treatment plan issues discussed with patient.
[2022-10-21] MEDS: Omeprazole 20 MG CAPSULE.DR PO (06:17)
[2022-10-21] MEDS: Levothyroxine Sodium 75 MCG TABLET PO (06:17)
[2022-10-21 07:56] LABS: Alanine Aminotransferase 15 U/L (0-40); Albumin Level 3.8 g/dL (3.5-5.0); Alkaline Phosphatase 59 U/L (39-117); Anion Gap 13 (12-20); Aspartate Amino Transferase 14 U/L (5-37); Bilirubin Total 0.8 mg/dL (0.0-1.0); Blood Urea Nitrogen 20 mg/dL (9-16); Calcium 8.8 mg/dL (8.4-10.2); Carbon Dioxide 26 mmol/L (22-29); Chloride 96 mmol/L (96-108); Cholesterol 196 mg/dL; Creatinine Clr Calc Pharmacy 102.3; Estimated Glomerular Filt Rate > 60; Glucose Fasting 222 mg/dL (60-99); HDL Cholesterol 27 mg/dL; Potassium 3.8 mmol/L (3.3-5.1); Sodium 131 mmol/L (135-145); Triglycerides 463 mg/dL
[2022-10-21 08:35] LABS: Glucose, Whole Blood 233 mg/dL (60-115)
[2022-10-21] MEDS: busPIRone HCl 10 MG TABLET PO ×2 (09:16→22:36)
[2022-10-21] MEDS: amLODIPine Besylate 10 MG TABLET PO (09:16)
[2022-10-21] MEDS: hydroCHLOROthiazide 25 MG TABLET PO (09:16)
[2022-10-21] MEDS: lisinopriL 40 MG TABLET PO (09:16)
[2022-10-21] MEDS: metFORMIN HCl 1,000 MG TABLET 1000 MG PO (09:17)
[2022-10-21] MEDS: Insulin Lispro 100 UNIT/ML 3 ML VIAL 14 UNIT SUBCUT (09:17)
[2022-10-21] MEDS: Ascorbic Acid 500 MG TABLET PO (09:17)
[2022-10-21] MEDS: Benztropine Mesylate 0.5 MG TABLET PO ×2 (09:17→22:37)
[2022-10-21] MEDS: Divalproex Sodium 500 MG TABLET.DR PO ×3 (09:17→22:36)
[2022-10-21 09:44] VITALS: BP 140/85; PULSE 71; RESP 18; TEMP 36.4; O2SAT 97
[2022-10-21] MEDS: Atorvastatin Calcium 20 MG TABLET PO (10:49)
[2022-10-21] MEDS: carvediloL 25 MG TABLET PO ×2 (10:49→22:37)
--- NOTE | 2022-10-21 13:06 | HO.PSYADMNOT ---
HPI Date of Service: 10/21/22 Chief Complaint: Depression Sources of Information: patient interviewed, chart reviewed and crisis/core team assessment reviewed HPI Subjective Notes: Conditional Voluntary Guardianship: Yes (Mother Nunu Nugent [phone]. Unclear degree of guardianship) Narrative: Pt presented via 911. He is extremely pleasant, unusual prosody during interview and very focused and interested on geographic areas and travel c/w ASD. Diagnosis of bipolar disorder and Autism spectrum disorder. Reports he left his home town of [place], [place] 1 week ago and started traveling. Was in [facility] with a friend, then [place], and then [facility] waiting t bus as part of travel back to [place]. Decied to go to the mall and missed his bus. Then went to a hotel his mom paid for- he got help from the police to get to the motel. Walked from there and felt depressed and SI, saw [facility] as he passed by there while walking and it was closed. As he felt depressed and SI he called 911 and led to [facility] evaluation and current admission. Reports he has been manic lateley- no sleep, elated, travels impulsively and gets into arguments when he usually does not. Gave example of being escorted from sporting event in [facility] because he tried to enter for free (Lacrosse game at [employer]). Reports he can also set off fire alarms when he feels scared or manic. Now more depressed. No psychosis. Wants to get back on meds and back to [place]. Does appear to know his medication regimen well. Depakote 500mg tid, trazodone 50mg hs, buspirone 10mg bid, abilify maintenna 400mg monthly (reports last given 10/09). Has been without medications x 3-4 days- mental health, diabetes, thryroid, HTN. PCP is Dr. White [place] [facility] [place],[id number]. Closed on Sundays. Team will need to call Saturday and confirm med doses, especially insulin around meals and also lantus 80 units twice daily versus night only. Past Psych: BPAD and ASD. Does appear to know his medication regimen well. Depakote 500mg tid, trazodone 50mg hs, buspirone 10mg bid, abilify maintenna 400mg monthly (last 10/09). Psychiatrist is Dr. Lucio at [facility]. Last inpt was 3-4 months ago in [facility]. No hx of SA. Clear manic episodes Social: Pt reports mother is his guardian: Mother Nunu Nugent [phone]. Unclear degree of guardianship. 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 Lives in own apartment in [place]. SSI and SSDI. Associates degree in communications. Special ed support. Single. No children. Occ alcohol use. Has a community case manager called Gurinder Augustine at [phone] (office number) Patient agreeable to treatment plan, happy with admission, felt safe, eager for restarting meds and then discharge planning. Appeared to understand CV. Past Psychiatric History: BPAD and ASD. Does appear to know his medication regimen well. Depakote 500mg tid, trazodone 50mg hs, buspirone 10mg bid, abilify maintenna 400mg monthly (last 10/09). Psychiatrist is Dr. Lucio at [facility]. Last inpt was 3-4 months ago in [facility]. No hx of SA. Clear manic episodes Medical Evaluation Reviewed: Yes PMFSH Narrative: diabetes, thryroid, HTN. PCP is Dr. White in [place]. [facility] [place]: [facility],[id number]. Closed on Sundays. Team will need to call Saturday and confirm med doses, especially insulin around meals and also lantus 80 units twice daily versus night only. Social History: Pt reports mother is his guardian: Mother Nunu Nugent [phone]. Unclear degree of guardianship. 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 Lives in own apartment in [place]. SSI and SSDI. Associates degree in communications. Special ed support. Single. No children. Occ alcohol use. Has a community case manager called Gurinedr Augustine at [phone] (office number) Diagnostics Vital Signs (24Hr): Vital Signs - 24 hr 10/20/22 20:11 10/20/22 23:27 10/21/22 09:44 Temperature 97.6 F 97.6 F 97.6 F Pulse Rate 79 68 71 Respiratory Rate 18 16 18 Blood Pressure 157/89 H 162/85 H 140/85 H Pulse Oximetry 98 99 97 Oxygen Delivery Method Room Air Room Air Room Air BMI result Body Mass Index 33.4 Labs 10/19/22 22:22 10/21/22 07:21 Labs: Laboratory Results - last 48 hr 10/19/22 10/19/22 10/19/22 22:05 22:22 22:22 WBC 8.1 RBC 4.56 L Hgb 14.0 Hct 38.2 L MCV 83.8 MCH 30.7 MCHC 36.6 H RDW 11.8 Plt Count 256 MPV 11.0 Immature Gran % (Auto) 0.5 H Neut % (Auto) 65.5 Lymph % (Auto) 24.6 Clinton % (Auto) 7.2 Eos % (Auto) 1.7 Baso % (Auto) 0.5 Lymph # (Auto) 2.0 Clinton # (Auto) 0.6 Eos # (Auto) 0.1 Baso # (Auto) 0.0 Abs Immat Gran (auto) 0.04 H Absolute Neuts (auto) 5.3 Absolute Nucleated RBC 0.000 Nucleated RBC % (auto) 0.0 VBG pH VBG pCO2 VBG pO2 VBG HCO3 VBG O2 Saturation VBG Base Excess Sodium 135 Potassium 4.5 Chloride 99 Carbon Dioxide 23 Anion Gap 18 BUN 19 H Creatinine 1.27 Estim Creat Clear Calc 83.7 Estimated GFR > 60 POC Glucose 435 H* Random Glucose 415 H* Fasting Glucose Calcium 9.1 Total Bilirubin 0.7 AST 14 ALT 17 Alkaline Phosphatase 75 Total Protein 7.2 Albumin 4.4 Triglycerides Cholesterol LDL Cholesterol, Calc HDL Cholesterol TSH Urine Color Urine Appearance Urine pH Ur Specific [place] Urine Protein Urine Glucose (UA) Urine Ketones Urine Blood Urine Nitrite Ur Leukocyte Esterase Urine RBC Urine WBC Ur Squamous Epith Cells Urine Bacteria Hyaline Casts Salicylates Urine Opiates Screen Urine Fentanyl Screen Acetaminophen Ur Barbiturates Screen Ur Phencyclidine Scrn Ur Amphetamines Screen U Benzodiazepines Scrn Urine Cocaine Screen U Marijuana (THC) Screen Acetone, Qual COVID-19 ([facility]) COVID-19 Clin Com 10/19/22 10/19/22 10/19/22 22:47 22:47 22:50 WBC RBC Hgb Hct MCV MCH MCHC RDW Plt Count MPV Immature Gran % (Auto) Neut % (Auto) Lymph % (Auto) Clinton % (Auto) Eos % (Auto) Baso % (Auto) Lymph # (Auto) [place] # (Auto) Eos # (Auto) Baso # (Auto) Abs Immat Gran (auto) Absolute Neuts (auto) Absolute Nucleated RBC Nucleated RBC % (auto) VBG pH 7.43 VBG pCO2 35 VBG pO2 104 VBG HCO3 24 VBG O2 Saturation 99.0 VBG Base Excess 0.3 Sodium Potassium Chloride Carbon Dioxide Anion Gap BUN Creatinine Estim Creat Clear Calc Estimated GFR POC Glucose Random Glucose Fasting Glucose Calcium Total Bilirubin AST ALT Alkaline Phosphatase Total Protein Albumin Triglycerides Cholesterol LDL Cholesterol, Calc HDL Cholesterol TSH 2.91 Urine Color Urine Appearance Urine pH Ur Specific [place] Urine Protein Urine Glucose (UA) Urine Ketones Urine Blood Urine Nitrite Ur Leukocyte Esterase Urine RBC Urine WBC Ur Squamous Epith Cells Urine Bacteria Hyaline Casts Salicylates < 5.0 L Urine Opiates Screen Urine Fentanyl Screen Acetaminophen < 17 Ur Barbiturates Screen Ur Phencyclidine Scrn Ur Amphetamines Screen U Benzodiazepines Scrn Urine Cocaine Screen U Marijuana (THC) Screen Acetone, Qual Small H COVID-19 ([facility]) COVID-19 Clin Com 10/19/22 10/20/22 10/20/22 23:48 01:25 01:48 WBC RBC Hgb Hct MCV MCH MCHC RDW Plt Count MPV Immature Gran % (Auto) Neut % (Auto) Lymph % (Auto) Clinton % (Auto) Eos % (Auto) Baso % (Auto) Lymph # (Auto) [place] # (Auto) Eos # (Auto) Baso # (Auto) Abs Immat Gran (auto) Absolute Neuts (auto) Absolute Nucleated RBC Nucleated RBC % (auto) VBG pH VBG pCO2 VBG pO2 VBG HCO3 VBG O2 Saturation VBG Base Excess Sodium Potassium Chloride Carbon Dioxide Anion Gap BUN Creatinine Estim Creat Clear Calc Estimated GFR POC Glucose 275 H Random Glucose Fasting Glucose Calcium Total Bilirubin AST ALT Alkaline Phosphatase Total Protein Albumin Triglycerides Cholesterol LDL Cholesterol, Calc HDL Cholesterol TSH Urine Color Yellow Urine Appearance Clear Urine pH 6.0 Ur Specific [place] >= 1.030 H Urine Protein 30 (1+) H Urine Glucose (UA) >=1000 H Urine Ketones 15 Urine Blood Trace H Urine Nitrite Negative Ur Leukocyte Esterase Negative Urine RBC 0-2 Urine WBC 0-5 Ur Squamous Epith Cells 0-2 Urine Bacteria None Seen Hyaline Casts 0-2 Salicylates Urine Opiates Screen Urine Fentanyl Screen Acetaminophen Ur Barbiturates Screen Ur Phencyclidine Scrn Ur Amphetamines Screen U Benzodiazepines Scrn Urine Cocaine Screen U Marijuana (THC) Screen Acetone, Qual COVID-19 ([facility]) Negative COVID-19 Extra Life Com See Note 10/20/22 10/20/22 10/20/22 01:48 06:56 13:14 WBC RBC Hgb Hct MCV MCH MCHC RDW Plt Count MPV Immature Gran % (Auto) Neut % (Auto) Lymph % (Auto) Clinton % (Auto) Eos % (Auto) Baso % (Auto) Lymph # (Auto) [place] # (Auto) Eos # (Auto) Baso # (Auto) Abs Immat Gran (auto) Absolute Neuts (auto) Absolute Nucleated RBC Nucleated RBC % (auto) VBG pH VBG pCO2 VBG pO2 VBG HCO3 VBG O2 Saturation VBG Base Excess Sodium Potassium Chloride Carbon Dioxide Anion Gap BUN Creatinine Estim Creat Clear Calc Estimated GFR POC Glucose 246 H 324 H Random Glucose Fasting Glucose Calcium Total Bilirubin AST ALT Alkaline Phosphatase Total Protein Albumin Triglycerides Cholesterol LDL Cholesterol, Calc HDL Cholesterol TSH Urine Color Urine Appearance Urine pH Ur Specific [place] Urine Protein Urine Glucose (UA) Urine Ketones Urine Blood Urine Nitrite Ur Leukocyte Esterase Urine RBC Urine WBC Ur Squamous Epith Cells Urine Bacteria Hyaline Casts Salicylates Urine Opiates Screen Not Detected Urine Fentanyl Screen Not Detected Acetaminophen Ur Barbiturates Screen Not Detected Ur Phencyclidine Scrn Not Detected Ur Amphetamines Screen Not Detected U Benzodiazepines Scrn Not Detected Urine Cocaine Screen Not Detected U Marijuana (THC) Screen Not Detected Acetone, Qual COVID-19 ([facility]) COVID-19 [facility] 10/20/22 10/20/22 10/20/22 16:44 20:20 22:32 WBC RBC Hgb Hct MCV MCH MCHC RDW Plt Count MPV Immature Gran % (Auto) Neut % (Auto) Lymph % (Auto) [place] % (Auto) Eos % (Auto) Baso % (Auto) Lymph # (Auto) [place] # (Auto) Eos # (Auto) Baso # (Auto) Abs Immat Gran (auto) Absolute Neuts (auto) Absolute Nucleated RBC Nucleated RBC % (auto) VBG pH VBG pCO2 VBG pO2 VBG HCO3 VBG O2 Saturation VBG Base Excess Sodium Potassium Chloride Carbon Dioxide Anion Gap BUN Creatinine Estim Creat Clear Calc Estimated GFR POC Glucose 395 H* 352 H* 367 H* Random Glucose Fasting Glucose Calcium Total Bilirubin AST ALT Alkaline Phosphatase Total Protein Albumin Triglycerides Cholesterol LDL Cholesterol, Calc HDL Cholesterol TSH Urine Color Urine Appearance Urine pH Ur Specific [place] Urine Protein Urine Glucose (UA) Urine Ketones Urine Blood Urine Nitrite Ur Leukocyte Esterase Urine RBC Urine WBC Ur Squamous Epith Cells Urine Bacteria Hyaline Casts Salicylates Urine Opiates Screen Urine Fentanyl Screen Acetaminophen Ur Barbiturates Screen Ur Phencyclidine Scrn Ur Amphetamines Screen U Benzodiazepines Scrn Urine Cocaine Screen U Marijuana (THC) Screen Acetone, Qual COVID-19 ([facility]) COVID-19 [facility] 10/21/22 10/21/22 07:21 08:21 WBC RBC Hgb Hct MCV MCH MCHC RDW Plt Count MPV Immature Gran % (Auto) Neut % (Auto) Lymph % (Auto) [place] % (Auto) Eos % (Auto) Baso % (Auto) Lymph # (Auto) [place] # (Auto) Eos # (Auto) Baso # (Auto) Abs Immat Gran (auto) Absolute Neuts (auto) Absolute Nucleated RBC Nucleated RBC % (auto) VBG pH VBG pCO2 VBG pO2 VBG HCO3 VBG O2 Saturation VBG Base Excess Sodium 131 L Potassium 3.8 Chloride 96 Carbon Dioxide 26 Anion Gap 13 BUN 20 H Creatinine 1.02 Estim Creat Clear Calc 102.3 Estimated GFR > 60 POC Glucose 233 H Random Glucose Fasting Glucose 222 H Calcium 8.8 Total Bilirubin 0.8 AST 14 ALT 15 Alkaline Phosphatase 59 Total Protein 6.0 L Albumin 3.8 Triglycerides 463 Cholesterol 196 LDL Cholesterol, Calc TNP HDL Cholesterol 27 TSH Urine Color Urine Appearance Urine pH Ur Specific [place] Urine Protein Urine Glucose (UA) Urine Ketones Urine Blood Urine Nitrite Ur Leukocyte Esterase Urine RBC Urine WBC Ur Squamous Epith Cells Urine Bacteria Hyaline Casts Salicylates Urine Opiates Screen Urine Fentanyl Screen Acetaminophen Ur Barbiturates Screen Ur Phencyclidine Scrn Ur Amphetamines Screen U Benzodiazepines Scrn Urine Cocaine Screen U Marijuana (THC) Screen Acetone, Qual COVID-19 ([facility]) COVID-19 [facility] Meds/Allergies Meds Home Medications Medication Instructions Recorded Confirmed Type amlodipine 10 mg tablet 10 mg PO DAILY 10/20/22 10/20/22 History aripiprazole 400 mg suspension, 400 mg IM QMONTH 10/20/22 10/20/22 History extended rel.intramuscular syringe (Roxana Kaplan) ascorbic acid (vitamin C) 500 mg 500 mg PO DAILY 10/20/22 10/20/22 History tablet (Vitamin C) atorvastatin 20 mg tablet 20 mg PO DAILY 10/20/22 10/20/22 History benztropine 0.5 mg tablet 1.5 mg PO BID 10/20/22 10/20/22 History buspirone 10 mg tablet 10 mg PO BID 10/20/22 10/20/22 History carvedilol 25 mg tablet 25 mg PO BID 10/20/22 10/20/22 History divalproex 500 mg tablet,delayed 500 mg PO TID 10/20/22 10/20/22 History release hydrochlorothiazide 25 mg tablet 25 mg PO DAILY 10/20/22 10/20/22 History insulin aspart U-100 100 unit/mL 14 unit subcut TIDAC 10/20/22 10/20/22 History (3 mL) subcutaneous pen (Novolog FlexPen U-100 Insulin aspart) insulin glargine 100 unit/mL (3 80 unit subcut BID 10/20/22 10/20/22 History mL) subcutaneous pen (Basaglar KwikPen U-100 Insulin) levothyroxine 75 mcg tablet 75 mcg PO DAILY@0600 10/20/22 10/20/22 History lisinopril 40 mg tablet 40 mg PO DAILY 10/20/22 10/20/22 History metformin 1,000 mg tablet 1,000 mg PO DAILY 10/20/22 10/20/22 History pantoprazole 40 mg tablet,delayed 40 mg PO DAILY 10/20/22 10/20/22 History release trazodone 50 mg tablet 50 mg PO BEDTIME 10/20/22 10/20/22 History Allergies Allergies Allergy/AdvReac Type Severity Reaction Status Date / Time penicillin G benzathine Allergy Rash Verified 10/19/22 22:10 Mental Status Exam Mental Status Exam Narrative: extremely pleasant, unusual prosody during interview and very focused and interested on geographic areas and travel c/w ASD Patient Appearance: Appropriate Patient Orientation: Person, Place, Time and Situation Level of Consciousness: Awake Patient Behavior: Appropriate, Talkative and Cooperative Mood Description: Anxious Affect Description: Calm Ability to Follow Directions: Fair Memory Description: Intact Hallucinations: None Delusions: Not Present Thought Process: Intact Thought Content: positive for Intact and positive for Preoccupation Depressive Symptoms: Increased Anxiety Judgement: Fair Assessment & Plan Assessment & Plan (1) Bipolar disorder: Status: Acute Code(s): F31.9 - Bipolar disorder, unspecified (2) Autism spectrum disorder: Status: Acute Code(s): F84.0 - Autistic disorder Plan Presents with BPAD, mixed episode in context of med non adherence and traveling out of home area impulsively. No management issues. Did restart depakote, trazodone, buspirine and medical meds- lantus 80mg bed (rather than bid until confirmed). Reported last abilify maintenna 400mg monthly injection was given 10/09/22. Will need to confirm medications: Pharmacy [place]: [facility],[id number]. Closed on Sundays. Team will need to call Saturday and confirm med doses, especially insulin around meals and also lantus 80 units twice daily versus night only. For treatment/dispo planning, also helpful for team to connect with both the regional transportation manager called Gurinder Augustine at [phone] (office number) and Guardian: Mother Nunu Nugent [phone] (Unclear degree of guardianship). Patient educated on: diagnosis and medication risk/benefits Informed Consent: understands Reason for continued inpatient stay Substantial Risk for: harm to self and inability to function Statement Statement: I have reviewed the history and physical and performed a pertinent examination on my patient. No changes have occurred unless specified. If the History and Physical was not performed prior to admission, the Hospitalist's service will be consulted for completing the admission physical. Time Spent With Patient Time: Total time managing care of this patient today ____ minutes.
[2022-10-21 13:16] LABS: Glucose, Whole Blood 388 mg/dL (60-115)
[2022-10-21] MEDS: Insulin Lispro 100 UNIT/ML 3 ML VIAL SUBCUT ×3 (13:50→22:40)
[2022-10-21 17:20] LABS: Glucose, Whole Blood 307 mg/dL (60-115)
[2022-10-21 22:20] VITALS: BP 141/70; PULSE 76; RESP 18; TEMP 36.1; O2SAT 97
[2022-10-21 22:32] LABS: Glucose, Whole Blood 307 mg/dL (60-115)
[2022-10-21] MEDS: traZODone HCL 50 MG TABLET PO (22:36)
[2022-10-21] MEDS: Insulin Glargine,Hum.rec.anlog 100 UNIT/ML 10 ML VIAL 80 UNIT SUBCUT (22:39)
[2022-10-22 06:00] VITALS: BP 122/72; PULSE 72; RESP 18; TEMP 36.6; O2SAT 98
[2022-10-22] MEDS: Omeprazole 20 MG CAPSULE.DR PO (06:20)
[2022-10-22] MEDS: Levothyroxine Sodium 75 MCG TABLET PO (06:20)
[2022-10-22 08:23] LABS: Glucose, Whole Blood 248 mg/dL (60-115)
[2022-10-22] MEDS: Divalproex Sodium 500 MG TABLET.DR PO ×3 (09:45→21:45)
[2022-10-22] MEDS: busPIRone HCl 10 MG TABLET PO ×2 (09:45→21:44)
[2022-10-22] MEDS: amLODIPine Besylate 10 MG TABLET PO (09:45)
[2022-10-22] MEDS: hydroCHLOROthiazide 25 MG TABLET PO (09:45)
[2022-10-22] MEDS: Atorvastatin Calcium 20 MG TABLET PO (09:45)
[2022-10-22] MEDS: lisinopriL 40 MG TABLET PO (09:45)
[2022-10-22] MEDS: carvediloL 25 MG TABLET PO ×2 (09:45→21:45)
[2022-10-22] MEDS: metFORMIN HCl 1,000 MG TABLET 1000 MG PO (09:46)
[2022-10-22] MEDS: Insulin Lispro 100 UNIT/ML 3 ML VIAL SUBCUT ×7 (09:46→21:47)
[2022-10-22] MEDS: Ascorbic Acid 500 MG TABLET PO (09:46)
[2022-10-22] MEDS: Benztropine Mesylate 0.5 MG TABLET PO ×2 (09:46→21:45)
[2022-10-22 13:21] LABS: Glucose, Whole Blood 415 mg/dL (60-115)
--- NOTE | 2022-10-22 13:44 | HO.PSYCHPN ---
Subjective Subjective Date of Service: 10/22/22 Reason For Visit: Depression Subjective Notes: Conditional Voluntary Interim History: Pt presents with bright affect. He reports last Saturday he was feeling suicidal. He denies any plan or intent to harm himself. He reports sleeping well. He reports feeling comfortable here in the unit. He is taking medications as prescribed. He has case folder from [facility] team. He also has guardian. Per nursing, pt slept through the night. No behavioral concerns. Medication Compliance: Yes Mental Status Exam Mental Status Exam Narrative: Appearance: casually groomed, fair hygiene, in NAD behavior: friendly and cooperative Psychomotor: no agitation or retardation noted Speech: mostly clear, somewhat monotone, spontaneous, regular rate. TC: feeling better, not feeling suicidal but still feeling down Mood: better Affect: much brighter, than reported mood SI: denies HI: denies VH/AH: denies Delusions: none reported or noted Insight/Judgment: fair x 2 Memory/cog: alert, oriented x 3. Diagnostics Vital Signs (24Hr): Vital Signs - 24 hr 10/21/22 22:20 10/22/22 06:00 Temperature 96.9 F 97.8 F Pulse Rate 76 72 Respiratory Rate 18 18 Blood Pressure 141/70 H 122/72 Pulse Oximetry 97 98 Oxygen Delivery Method Room Air Room Air BMI result Body Mass Index 33.4 Labs 10/19/22 22:22 10/21/22 07:21 Labs: Laboratory Results - last 48 hr 10/20/22 10/20/22 10/20/22 16:44 20:20 22:32 Sodium Potassium Chloride Carbon Dioxide Anion Gap BUN Creatinine Estim Creat Clear Calc Estimated GFR POC Glucose 395 H* 352 H* 367 H* Fasting Glucose Calcium Total Bilirubin AST ALT Alkaline Phosphatase Total Protein Albumin Triglycerides Cholesterol LDL Cholesterol, Calc HDL Cholesterol 10/21/22 10/21/22 10/21/22 07:21 08:21 13:12 Sodium 131 L Potassium 3.8 Chloride 96 Carbon Dioxide 26 Anion Gap 13 BUN 20 H Creatinine 1.02 Estim Creat Clear Calc 102.3 Estimated GFR > 60 POC Glucose 233 H 388 H* Fasting Glucose 222 H Calcium 8.8 Total Bilirubin 0.8 AST 14 ALT 15 Alkaline Phosphatase 59 Total Protein 6.0 L Albumin 3.8 Triglycerides 463 Cholesterol 196 LDL Cholesterol, Calc TNP HDL Cholesterol 27 05/01/0610/21/22 10/22/22 17:09 22:25 08:19 Sodium Potassium Chloride Carbon Dioxide Anion Gap BUN Creatinine Estim Creat Clear Calc Estimated GFR POC Glucose 307 H 307 H 248 H Fasting Glucose Calcium Total Bilirubin AST ALT Alkaline Phosphatase Total Protein Albumin Triglycerides Cholesterol LDL Cholesterol, Calc HDL Cholesterol 10/22/22 13:16 Sodium Potassium Chloride Carbon Dioxide Anion Gap BUN Creatinine Estim Creat Clear Calc Estimated GFR POC Glucose 415 H* Fasting Glucose Calcium Total Bilirubin AST ALT Alkaline Phosphatase Total Protein Albumin Triglycerides Cholesterol LDL Cholesterol, Calc HDL Cholesterol Medications Medications Current Medications Acetaminophen (Acetaminophen 325 Mg Tablet) 650 mg PO Q6H PRN PRN Reason: Headache/Pain Mild Scale (1-3) Al Hydroxide/Mg Hydroxide (Magnesium Hydrox/Alum Hydrox 30 Ml Oral.Susp) 30 ml PO Q6H PRN PRN Reason: Heartburn/Nausea Amlodipine Besylate (Amlodipine Besylate 10 Mg Tablet) 10 mg PO DAILY [facility]; Protocol Last Admin: 10/22/22 09:45 Dose: 10 mg Ascorbic Acid (Ascorbic Acid 500 Mg Tablet) 500 mg PO DAILY [facility] Last Admin: 10/22/22 09:46 Dose: 500 mg Atorvastatin Calcium (Atorvastatin Calcium 20 Mg Tablet) 20 mg PO DAILY [facility] Last Admin: 10/22/22 09:45 Dose: 20 mg Benztropine Mesylate (Benztropine Mesylate 0.5 Mg Tablet) 0.5 mg PO BID [facility] Last Admin: 10/22/22 09:46 Dose: 0.5 mg Buspirone HCl (Buspirone Hcl 10 Mg Tablet) 10 mg PO BID [facility] Last Admin: 10/22/22 09:45 Dose: 10 mg Carvedilol (Carvedilol 25 Mg Tablet) 25 mg PO BID [facility]; Protocol Last Admin: 10/22/22 09:45 Dose: 25 mg Divalproex Sodium (Divalproex Sodium 500 Mg Tablet.Dr) 500 mg PO TID [facility] Last Admin: 10/22/22 09:45 Dose: 500 mg Glucose (Glucose Gel 15 Gm Gel..Gram.) 15 gm PO Q15M PRN; Protocol PRN Reason: per Hypoglycemia Standing Ord. Hydrochlorothiazide (Hydrochlorothiazide 25 Mg Tablet) 25 mg PO DAILY [facility]; Protocol Last Admin: 10/22/22 09:45 Dose: 25 mg Hydroxyzine HCl (Hydroxyzine Hcl 25 Mg Tablet) 25 mg PO Q6H PRN PRN Reason: Anxiety Insulin Glargine (Insulin Glargine,Hum.Rec.Anlog 100 Unit/Ml 10 Ml Vial) 80 unit SUBCUT BEDTIME [facility] Last Admin: 10/21/22 22:39 Dose: 80 unit Insulin Human Lispro (Insulin Lispro 100 Unit/Ml 3 Ml Vial) 0 unit SUBCUT QIDACHS [facility]; Protocol Last Admin: 10/22/22 09:46 Dose: 4 unit Levothyroxine Sodium (Levothyroxine Sodium 75 Mcg Tablet) 75 mcg PO DAILY@0630 [facility] Last Admin: 10/22/22 06:20 Dose: 75 mcg Lisinopril (Lisinopril 40 Mg Tablet) 40 mg PO DAILY [facility]; Protocol Last Admin: 10/22/22 09:45 Dose: 40 mg Magnesium Hydroxide (Milk Of Magnesia 30 Ml Oral.Susp) 30 ml PO DAILY PRN PRN Reason: Constipation Metformin HCl (Metformin Hcl 1,000 Mg Tablet) 1,000 mg PO DAILY@0800 [facility] Last Admin: 10/22/22 09:46 Dose: 1,000 mg Omeprazole (Omeprazole 20 Mg Capsule.Dr) 20 mg PO DAILY@0630 [facility] Last Admin: 10/22/22 06:20 Dose: 20 mg Trazodone HCl (Trazodone Hcl 50 Mg Tablet) 50 mg PO BEDTIME [facility] Last Admin: 10/21/22 22:36 Dose: 50 mg Trazodone HCl (Trazodone Hcl 50 Mg Tablet) 50 mg PO BEDTIME MRX1 PRN PRN Reason: Insomnia Allergies Allergies Allergy/AdvReac Type Severity Reaction Status Date / Time penicillin G benzathine Allergy Rash Verified 10/19/22 22:10 Assessment & Plan Assessment & Plan (1) Bipolar disorder: Status: Acute Code(s): F31.9 - Bipolar disorder, unspecified (2) Autism spectrum disorder: Status: Acute Code(s): F84.0 - Autistic disorder Plan Presents with BPAD, mixed episode in context of med non adherence and traveling out of home area impulsively. No management issues. Did restart depakote, trazodone, buspirine and medical meds- lantus 80mg bed (rather than bid until confirmed). Reported last abilify maintenna 400mg monthly injection was given 10/09/22. Will need to confirm medications: Pharmacy [place]: [facility],[id number]. Closed on Sundays. Team will need to call Saturday and confirm med doses, especially insulin around meals and also lantus 80 units twice daily versus night only. For treatment/dispo planning, also helpful for team to connect with both the development manager called Gurinder Augustine at [phone] (office number) and Guardian: Mother Nunu Nugent [phone] (Unclear degree of guardianship). 10/22 continue current medications. BS large uncontrolled, hospitalist consult. Reason for continued inpatient stay Substantial Risk for: harm to self Time Spent With Patient Time: Total time managing care of this patient today ____ minutes.
--- NOTE | 2022-10-22 15:28 | P.EN_ITS ---
Event Note Date of Service: 10/22/22 Event Note: Consult placed to hospitalist service for management of hyperglycemia. Pt uses 80 units insulin glargine BID at home along with 14 units novolog TIDAC and metformin. He has been receiving humalog on sliding scale, metformin, and 80units insulin glargine daily. Has been hyperglycemic since arrival, today glucose 421. Given one time 5 units humalog. Increase lantus to 75% home dose, so 60 units BID. Increase sliding scale by 2 units and add standing 5 units kyle log QIDACHS. Continue metformin, diabetic diet, and POC glucose. Time Spent With Patient Time: Total time managing care of this patient today ____ minutes.
[2022-10-22] MEDS: Magnesium Hydrox/Alum Hydrox 30 ML ORAL.SUSP PO (15:49)
[2022-10-22 17:47] LABS: Glucose, Whole Blood 245 mg/dL (60-115)
[2022-10-22 20:00] VITALS: BP 131/61; PULSE 78; RESP 18; TEMP 36.6; O2SAT 97
[2022-10-22 21:39] LABS: Glucose, Whole Blood 279 mg/dL (60-115)
[2022-10-22] MEDS: traZODone HCL 50 MG TABLET PO (21:44)
[2022-10-22] MEDS: Insulin Glargine,Hum.rec.anlog 100 UNIT/ML 10 ML VIAL 60 UNIT SUBCUT (21:46)
[2022-10-23] MEDS: Levothyroxine Sodium 75 MCG TABLET PO (06:06)
[2022-10-23] MEDS: Omeprazole 20 MG CAPSULE.DR PO (06:06)
[2022-10-23 08:59] VITALS: BP 143/68; PULSE 95; RESP 20; TEMP 36.2; O2SAT 97
[2022-10-23] MEDS: Ascorbic Acid 500 MG TABLET PO (09:00)
[2022-10-23] MEDS: busPIRone HCl 10 MG TABLET PO ×2 (09:00→20:59)
[2022-10-23] MEDS: metFORMIN HCl 1,000 MG TABLET 1000 MG PO (09:00)
[2022-10-23] MEDS: Benztropine Mesylate 0.5 MG TABLET PO ×2 (09:00→20:59)
[2022-10-23] MEDS: lisinopriL 40 MG TABLET PO (09:00)
[2022-10-23] MEDS: Atorvastatin Calcium 20 MG TABLET PO (09:00)
[2022-10-23] MEDS: amLODIPine Besylate 10 MG TABLET PO (09:00)
[2022-10-23] MEDS: carvediloL 25 MG TABLET PO ×2 (09:01→20:59)
[2022-10-23] MEDS: Divalproex Sodium 500 MG TABLET.DR PO ×3 (09:01→20:59)
[2022-10-23] MEDS: hydroCHLOROthiazide 25 MG TABLET PO (09:01)
[2022-10-23] MEDS: Insulin Lispro 100 UNIT/ML 3 ML VIAL SUBCUT ×8 (09:13→21:03)
[2022-10-23] MEDS: Insulin Glargine,Hum.rec.anlog 100 UNIT/ML 10 ML VIAL 60 UNIT SUBCUT (09:13)
[2022-10-23 09:42] LABS: Glucose, Whole Blood 161 mg/dL (60-115)
[2022-10-23 13:15] LABS: Glucose, Whole Blood 234 mg/dL (60-115)
--- NOTE | 2022-10-23 13:37 | PC.NURSE ---
Rose Nielson notified of patient glucose level per her request. Patient in group until 1pm ade. Order to continue with Humalog as ordered once lunch arrives.
--- NOTE | 2022-10-23 15:19 | HO.PSYCHPN ---
Subjective Subjective Date of Service: 10/23/22 Reason For Visit: Depression Subjective Notes: Conditional Voluntary Interim History: Pt continues to present with bright affect. Pt reports mood is down but denies any plan or intent or thoughts to harm himself or others. He reports feeling comfortable here. He reports sleeping well. He denies any physical concerns. Pt hopes to return to [facility] soon, his mother is in agreement. clinical manager aware of situation, and planning for d/c this coming . Medication Compliance: Yes Review of Systems Review of Systems Yes all other systems are reviewed and are negative Mental Status Exam Mental Status Exam Narrative: Appearance: casually groomed, fair hygiene, in NAD behavior: friendly and cooperative Psychomotor: no agitation or retardation noted Speech: mostly clear, somewhat monotone, spontaneous, regular rate. TC: feeling better, not feeling suicidal but still feeling down Mood: better Affect: much brighter, than reported mood SI: denies HI: denies VH/AH: denies Delusions: none reported or noted Insight/Judgment: fair x 2 Memory/cog: alert, oriented x 3. Diagnostics Vital Signs (24Hr): Vital Signs - 24 hr 10/22/22 20:00 10/23/22 08:59 Temperature 97.9 F 97.1 F Pulse Rate 78 95 Respiratory Rate 18 20 Blood Pressure 131/61 143/68 H Pulse Oximetry 97 97 Oxygen Delivery Method Room Air Room Air BMI result Body Mass Index 33.4 Labs 10/19/22 22:22 10/21/22 07:21 Labs: Laboratory Results - last 48 hr 10/21/22 10/21/22 10/22/22 17:09 22:25 08:19 POC Glucose 307 H 307 H 248 H 10/22/22 10/22/22 10/22/22 13:16 17:43 21:35 POC Glucose 415 H* 245 H 279 H 10/23/22 10/23/22 09:06 13:12 POC Glucose 161 H 234 H Medications Medications Current Medications Acetaminophen (Acetaminophen 325 Mg Tablet) 650 mg PO Q6H PRN PRN Reason: Headache/Pain Mild Scale (1-3) Al Hydroxide/Mg Hydroxide (Magnesium Hydrox/Alum Hydrox 30 Ml Oral.Susp) 30 ml PO Q6H PRN PRN Reason: Heartburn/Nausea Last Admin: 10/22/22 15:49 Dose: 30 ml Amlodipine Besylate (Amlodipine Besylate 10 Mg Tablet) 10 mg PO DAILY [facility]; Protocol Last Admin: 10/23/22 09:00 Dose: 10 mg Ascorbic Acid (Ascorbic Acid 500 Mg Tablet) 500 mg PO DAILY [facility] Last Admin: 10/23/22 09:00 Dose: 500 mg Atorvastatin Calcium (Atorvastatin Calcium 20 Mg Tablet) 20 mg PO DAILY [facility] Last Admin: 10/23/22 09:00 Dose: 20 mg Benztropine Mesylate (Benztropine Mesylate 0.5 Mg Tablet) 0.5 mg PO BID [facility] Last Admin: 10/23/22 09:00 Dose: 0.5 mg Buspirone HCl (Buspirone Hcl 10 Mg Tablet) 10 mg PO BID [facility] Last Admin: 10/23/22 09:00 Dose: 10 mg Carvedilol (Carvedilol 25 Mg Tablet) 25 mg PO BID [facility]; Protocol Last Admin: 10/23/22 09:01 Dose: 25 mg Divalproex Sodium (Divalproex Sodium 500 Mg Tablet.Dr) 500 mg PO TID [facility] Last Admin: 10/23/22 09:01 Dose: 500 mg Glucose (Glucose Gel 15 Gm Gel..Gram.) 15 gm PO Q15M PRN; Protocol PRN Reason: per Hypoglycemia Standing Ord. Hydrochlorothiazide (Hydrochlorothiazide 25 Mg Tablet) 25 mg PO DAILY [facility]; Protocol Last Admin: 10/23/22 09:01 Dose: 25 mg Hydroxyzine HCl (Hydroxyzine Hcl 25 Mg Tablet) 25 mg PO Q6H PRN PRN Reason: Anxiety Insulin Glargine (Insulin Glargine,Hum.Rec.Anlog 100 Unit/Ml 10 Ml Vial) 60 unit SUBCUT BID [facility] Last Admin: 10/23/22 09:13 Dose: 1 unit Insulin Human Lispro (Insulin Lispro 100 Unit/Ml 3 Ml Vial) 0 unit SUBCUT QIDACHS [facility]; Protocol Last Admin: 10/23/22 13:34 Dose: 6 unit Insulin Human Lispro (Insulin Lispro 100 Unit/Ml 3 Ml Vial) 5 unit SUBCUT QIDACHS [facility] Last Admin: 10/23/22 13:35 Dose: 5 unit Levothyroxine Sodium (Levothyroxine Sodium 75 Mcg Tablet) 75 mcg PO DAILY@0630 [facility] Last Admin: 10/23/22 06:06 Dose: 75 mcg Lisinopril (Lisinopril 40 Mg Tablet) 40 mg PO DAILY [facility]; Protocol Last Admin: 10/23/22 09:00 Dose: 40 mg Magnesium Hydroxide (Milk Of Magnesia 30 Ml Oral.Susp) 30 ml PO DAILY PRN PRN Reason: Constipation Metformin HCl (Metformin Hcl 1,000 Mg Tablet) 1,000 mg PO DAILY@0800 [facility] Last Admin: 10/23/22 09:00 Dose: 1,000 mg Omeprazole (Omeprazole 20 Mg Capsule.Dr) 20 mg PO DAILY@0630 [facility] Last Admin: 10/23/22 06:06 Dose: 20 mg Trazodone HCl (Trazodone Hcl 50 Mg Tablet) 50 mg PO BEDTIME [facility] Last Admin: 10/22/22 21:44 Dose: 50 mg Trazodone HCl (Trazodone Hcl 50 Mg Tablet) 50 mg PO BEDTIME MRX1 PRN PRN Reason: Insomnia Allergies Allergies Allergy/AdvReac Type Severity Reaction Status Date / Time penicillin G benzathine Allergy Rash Verified 10/19/22 22:10 Assessment & Plan Assessment & Plan (1) Bipolar disorder: Status: Acute Code(s): F31.9 - Bipolar disorder, unspecified (2) Autism spectrum disorder: Status: Acute Code(s): F84.0 - Autistic disorder Plan Presents with BPAD, mixed episode in context of med non adherence and traveling out of home area impulsively. No management issues. Did restart depakote, trazodone, buspirine and medical meds- lantus 80mg bed (rather than bid until confirmed). Reported last abilify maintenna 400mg monthly injection was given 10/09/22. Will need to confirm medications: Pharmacy [place]: [facility],[id number]. Closed on Sundays. Team will need to call Saturday and confirm med doses, especially insulin around meals and also lantus 80 units twice daily versus night only. For treatment/dispo planning, also helpful for team to connect with both the clinical manager called Gurinder Augustine at [phone] (office number) and Guardian: Mother Nunu Nugent [phone] (Unclear degree of guardianship). 10/22 continue current medications. BS large uncontrolled, hospitalist consult. 10/23 continue tx. Reason for continued inpatient stay Substantial Risk for: inability to function Time Spent With Patient Time: Total time managing care of this patient today ____ minutes.
[2022-10-23 17:52] LABS: Glucose, Whole Blood 260 mg/dL (60-115)
[2022-10-23] MEDS: traZODone HCL 50 MG TABLET PO (21:00)
[2022-10-23] MEDS: Insulin Glargine,Hum.rec.anlog 100 UNIT/ML 10 ML VIAL 65 UNIT SUBCUT (21:02)
[2022-10-23 21:08] VITALS: BP 162/72; PULSE 84; TEMP 36.3; O2SAT 95
[2022-10-23 22:50] LABS: Glucose, Whole Blood 292 mg/dL (60-115)
[2022-10-24] MEDS: Omeprazole 20 MG CAPSULE.DR PO (06:55)
[2022-10-24] MEDS: Levothyroxine Sodium 75 MCG TABLET PO (06:55)
[2022-10-24 08:15] LABS: Glucose, Whole Blood 162 mg/dL (60-115)
[2022-10-24 08:29] VITALS: BP 135/72; PULSE 74; RESP 18; TEMP 36.6; O2SAT 96
[2022-10-24] MEDS: Insulin Lispro 100 UNIT/ML 3 ML VIAL SUBCUT ×8 (08:56→21:19)
[2022-10-24] MEDS: Insulin Glargine,Hum.rec.anlog 100 UNIT/ML 10 ML VIAL 70 UNIT SUBCUT (08:58)
[2022-10-24] MEDS: Ascorbic Acid 500 MG TABLET PO (08:59)
[2022-10-24] MEDS: metFORMIN HCl 1,000 MG TABLET 1000 MG PO (08:59)
[2022-10-24] MEDS: carvediloL 25 MG TABLET PO ×2 (08:59→21:17)
[2022-10-24] MEDS: Atorvastatin Calcium 20 MG TABLET PO (08:59)
[2022-10-24] MEDS: busPIRone HCl 10 MG TABLET PO ×2 (09:00→21:17)
[2022-10-24] MEDS: Benztropine Mesylate 0.5 MG TABLET PO ×2 (09:00→21:17)
[2022-10-24] MEDS: lisinopriL 40 MG TABLET PO (09:00)
[2022-10-24] MEDS: amLODIPine Besylate 10 MG TABLET PO (09:00)
[2022-10-24] MEDS: hydroCHLOROthiazide 25 MG TABLET PO (09:00)
[2022-10-24] MEDS: Divalproex Sodium 500 MG TABLET.DR PO ×3 (09:00→21:17)
[2022-10-24 12:54] LABS: Glucose, Whole Blood 288 mg/dL (60-115)
[2022-10-24 17:42] LABS: Glucose, Whole Blood 185 mg/dL (60-115)
[2022-10-24 21:00] VITALS: BP 165/76; PULSE 75; TEMP 36.5; O2SAT 94
[2022-10-24 21:07] LABS: Glucose, Whole Blood 307 mg/dL (60-115)
--- NOTE | 2022-10-24 21:10 | P.PNPSI_ITS ---
Subjective Subjective Date of Service: 10/24/22 Reason For Visit: Depression Subjective Notes: Conditional Voluntary Interim History: Pt reports feeling well, better than when he came in. He denies SI/HI. He reports sleeping well. He denies VH/AH. Pt reports sleeping well. No behavioral concerns. Pt looking forward to d/c tomorrow. Medication Compliance: Yes Review of Systems Review of Systems Yes all other systems are reviewed and are negative Mental Status Exam Mental Status Exam Narrative: Appearance: casually groomed, fair hygiene, in NAD behavior: friendly and cooperative Psychomotor: no agitation or retardation noted Speech: mostly clear, somewhat monotone, spontaneous, regular rate. TC: feeling better, not feeling suicidal but still feeling down Mood: better Affect: much brighter, than reported mood SI: denies HI: denies VH/AH: denies Delusions: none reported or noted Insight/Judgment: fair x 2 Memory/cog: alert, oriented x 3. Diagnostics Vital Signs (24Hr): Vital Signs - 24 hr 10/24/22 08:29 Temperature 97.8 F Pulse Rate 74 Respiratory Rate 18 Blood Pressure 135/72 Pulse Oximetry 96 Oxygen Delivery Method Room Air BMI result Body Mass Index 33.4 Labs 10/19/22 22:22 10/21/22 07:21 Labs: Laboratory Results - last 48 hr 10/22/22 10/23/22 10/23/22 21:35 09:06 13:12 POC Glucose 279 H 161 H 234 H 10/23/22 10/23/22 10/24/22 17:48 20:45 08:08 POC Glucose 260 H 292 H 162 H 10/24/22 10/24/22 10/24/22 12:50 17:38 21:02 POC Glucose 288 H 185 H 307 H Medications Medications Current Medications Acetaminophen (Acetaminophen 325 Mg Tablet) 650 mg PO Q6H PRN PRN Reason: Headache/Pain Mild Scale (1-3) Al Hydroxide/Mg Hydroxide (Magnesium Hydrox/Alum Hydrox 30 Ml Oral.Susp) 30 ml PO Q6H PRN PRN Reason: Heartburn/Nausea Last Admin: 10/22/22 15:49 Dose: 30 ml Amlodipine Besylate (Amlodipine Besylate 10 Mg Tablet) 10 mg PO DAILY [facility]; Protocol Last Admin: 10/24/22 09:00 Dose: 10 mg Ascorbic Acid (Ascorbic Acid 500 Mg Tablet) 500 mg PO DAILY [facility] Last Admin: 10/24/22 08:59 Dose: 500 mg Atorvastatin Calcium (Atorvastatin Calcium 20 Mg Tablet) 20 mg PO DAILY [facility] Last Admin: 10/24/22 08:59 Dose: 20 mg Benztropine Mesylate (Benztropine Mesylate 0.5 Mg Tablet) 0.5 mg PO BID [facility] Last Admin: 10/24/22 09:00 Dose: 0.5 mg Buspirone HCl (Buspirone Hcl 10 Mg Tablet) 10 mg PO BID [facility] Last Admin: 10/24/22 09:00 Dose: 10 mg Carvedilol (Carvedilol 25 Mg Tablet) 25 mg PO BID [facility]; Protocol Last Admin: 10/24/22 08:59 Dose: 25 mg Divalproex Sodium (Divalproex Sodium 500 Mg Tablet.Dr) 500 mg PO TID [facility] Last Admin: 10/24/22 14:10 Dose: 500 mg Glucose (Glucose Gel 15 Gm Gel..Gram.) 15 gm PO Q15M PRN; Protocol PRN Reason: per Hypoglycemia Standing Ord. Guaifenesin (Guaifenesin La 600 Mg Tab.Er.12h) 600 mg PO BID PRN PRN Reason: Congestion Hydrochlorothiazide (Hydrochlorothiazide 25 Mg Tablet) 25 mg PO DAILY [facility]; Protocol Last Admin: 10/24/22 09:00 Dose: 25 mg Hydroxyzine HCl (Hydroxyzine Hcl 25 Mg Tablet) 25 mg PO Q6H PRN PRN Reason: Anxiety Insulin Glargine (Insulin Glargine,Hum.Rec.Anlog 100 Unit/Ml 10 Ml Vial) 75 unit SUBCUT BID [facility] Insulin Human Lispro (Insulin Lispro 100 Unit/Ml 3 Ml Vial) 0 unit SUBCUT QIDACHS [facility]; Protocol Last Admin: 10/24/22 18:44 Dose: 4 unit Insulin Human Lispro (Insulin Lispro 100 Unit/Ml 3 Ml Vial) 5 unit SUBCUT QIDACHS [facility] Last Admin: 10/24/22 18:44 Dose: 5 unit Levothyroxine Sodium (Levothyroxine Sodium 75 Mcg Tablet) 75 mcg PO DAILY@0630 [facility] Last Admin: 10/24/22 06:55 Dose: 75 mcg Lisinopril (Lisinopril 40 Mg Tablet) 40 mg PO DAILY [facility]; Protocol Last Admin: 10/24/22 09:00 Dose: 40 mg Magnesium Hydroxide (Milk Of Magnesia 30 Ml Oral.Susp) 30 ml PO DAILY PRN PRN Reason: Constipation Metformin HCl (Metformin Hcl 1,000 Mg Tablet) 1,000 mg PO DAILY@0800 [facility] Last Admin: 10/24/22 08:59 Dose: 1,000 mg Omeprazole (Omeprazole 20 Mg Capsule.Dr) 20 mg PO DAILY@0630 [facility] Last Admin: 10/24/22 06:55 Dose: 20 mg Trazodone HCl (Trazodone Hcl 50 Mg Tablet) 50 mg PO BEDTIME [facility] Last Admin: 10/23/22 21:00 Dose: 50 mg Trazodone HCl (Trazodone Hcl 50 Mg Tablet) 50 mg PO BEDTIME MRX1 PRN PRN Reason: Insomnia Allergies Allergies Allergy/AdvReac Type Severity Reaction Status Date / Time penicillin G benzathine Allergy Rash Verified 10/19/22 22:10 Assessment & Plan Assessment & Plan (1) Bipolar disorder: Status: Acute Code(s): F31.9 - Bipolar disorder, unspecified (2) Autism spectrum disorder: Status: Acute Code(s): F84.0 - Autistic disorder Plan Presents with BPAD, mixed episode in context of med non adherence and traveling out of home area impulsively. No management issues. Did restart depakote, trazodone, buspirine and medical meds- lantus 80mg bed (rather than bid until confirmed). Reported last abilify maintenna 400mg monthly injection was given 10/09/22. Will need to confirm medications: Pharmacy [place]: [facility],[id number]. Closed on Sundays. Team will need to call Saturday and confirm med doses, especially insulin around meals and also lantus 80 units twice daily versus night only. For treatment/dispo planning, also helpful for team to connect with both the senior category manager called Gurinder Augustine at [phone] (office number) and Guardian: Mother Nunu Nugent [phone] (Unclear degree of guardianship). 10/22 continue current medications. BS large uncontrolled, hospitalist consult. 10/23 continue tx. 10/24 continue tx. Reason for continued inpatient stay Substantial Risk for: stable for discharge Time Spent With Patient Time: Total time managing care of this patient today ____ minutes.
[2022-10-24] MEDS: traZODone HCL 50 MG TABLET PO (21:17)
[2022-10-24] MEDS: Insulin Glargine,Hum.rec.anlog 100 UNIT/ML 10 ML VIAL 75 UNIT SUBCUT (21:19)
[2022-10-24] MEDS: guaiFENesin LA 600 MG TAB.ER.12H PO (21:58)
[2022-10-25 06:00] VITALS: BP 170/88; PULSE 80; RESP 18; TEMP 36.7; O2SAT 95
[2022-10-25] MEDS: Omeprazole 20 MG CAPSULE.DR PO (06:26)
[2022-10-25] MEDS: Levothyroxine Sodium 75 MCG TABLET PO (06:26)
[2022-10-25 08:54] LABS: Glucose, Whole Blood 122 mg/dL (60-115)
[2022-10-25] MEDS: Insulin Lispro 100 UNIT/ML 3 ML VIAL SUBCUT (09:29)
--- NOTE | 2022-10-25 09:29 | P.DS_ITS ---
DS: Providers Provider Date of Service: 10/25/22 Date of admission: 10/20/22 22:58 Primary care physician: None Physician Consults: 10/22/22 13:48 Consult to Hospitalist Routine Comment: Consulting Provider: Hospitalist Reason For Exam: uncontrolled BS DS: Diagnosis Discharge Diagnosis (1) Bipolar disorder: Status: Acute (2) Autism spectrum disorder: Status: Acute DS: Medications Discharge Medications Home Medications: Home Medications Medication Instructions Recorded Confirmed aripiprazole 400 mg suspension, 400 mg IM QMONTH 10/20/22 10/20/22 extended rel.intramuscular syringe (Roxana Kaplan) ascorbic acid (vitamin C) 500 mg 500 mg PO DAILY 10/20/22 10/20/22 tablet (Vitamin C) benztropine 0.5 mg tablet 1.5 mg PO BID 10/20/22 10/20/22 buspirone 10 mg tablet 10 mg PO BID 10/20/22 10/20/22 divalproex 500 mg tablet,delayed 500 mg PO TID 10/20/22 10/20/22 release hydrochlorothiazide 25 mg tablet 25 mg PO DAILY 10/20/22 10/20/22 insulin aspart U-100 100 unit/mL 14 unit subcut TIDAC 10/20/22 10/20/22 (3 mL) subcutaneous pen (Novolog FlexPen U-100 Insulin aspart) insulin glargine 100 unit/mL (3 80 unit subcut BID 10/20/22 10/20/22 mL) subcutaneous pen (Basaglar KwikPen U-100 Insulin) levothyroxine 75 mcg tablet 75 mcg PO DAILY@0600 10/20/22 10/20/22 metformin 1,000 mg tablet 1,000 mg PO DAILY 10/20/22 10/20/22 pantoprazole 40 mg tablet,delayed 40 mg PO DAILY 10/20/22 10/20/22 release trazodone 50 mg tablet 50 mg PO BEDTIME 10/20/22 10/20/22 Previous Rx's Medication Instructions Recorded amlodipine 10 mg tablet 10 mg PO DAILY #0 tabs 10/25/22 atorvastatin 20 mg tablet 20 mg PO DAILY #0 tabs 10/25/22 carvedilol 25 mg tablet 25 mg PO BID #0 tabs 10/25/22 lisinopril 40 mg tablet 40 mg PO DAILY #0 tabs 10/25/22 Mental Status Exam Mental Status Exam Narrative: Appearance: casually groomed, fair hygiene, in NAD behavior: friendly and cooperative Psychomotor: no agitation or retardation noted Speech: mostly clear, somewhat monotone, spontaneous, regular rate. TC: feeling better, not feeling suicidal but still feeling down Mood: better Affect: much brighter, than reported mood SI: denies HI: denies VH/AH: denies Delusions: none reported or noted Insight/Judgment: fair x 2 Memory/cog: alert, oriented x 3. Data Data Completed and Pending Completed studies during hospitalization [Text1]: 10/19/22 10/19/22 10/19/22 22:05 22:22 22:22 WBC 8.1 RBC 4.56 L Hgb 14.0 Hct 38.2 L MCV 83.8 MCH 30.7 MCHC 36.6 H RDW 11.8 Plt Count 256 MPV 11.0 Immature Gran % (Auto) 0.5 H Neut % (Auto) 65.5 Lymph % (Auto) 24.6 Canadian % (Auto) 7.2 Eos % (Auto) 1.7 Baso % (Auto) 0.5 Lymph # (Auto) 2.0 Canadian # (Auto) 0.6 Eos # (Auto) 0.1 Baso # (Auto) 0.0 Abs Immat Gran (auto) 0.04 H Absolute Neuts (auto) 5.3 Absolute Nucleated RBC 0.000 Nucleated RBC % (auto) 0.0 VBG pH VBG pCO2 VBG pO2 VBG HCO3 VBG O2 Saturation VBG Base Excess Sodium 135 Potassium 4.5 Chloride 99 Carbon Dioxide 23 Anion Gap 18 BUN 19 H Creatinine 1.27 Estim Creat Clear Calc 83.7 Estimated GFR > 60 POC Glucose 435 H* Random Glucose 415 H* Fasting Glucose Calcium 9.1 Total Bilirubin 0.7 AST 14 ALT 17 Alkaline Phosphatase 75 Total Protein 7.2 Albumin 4.4 Triglycerides Cholesterol LDL Cholesterol, Calc HDL Cholesterol TSH Urine Color Urine Appearance Urine pH Ur Specific Mascot Urine Protein Urine Glucose (UA) Urine Ketones Urine Blood Urine Nitrite Ur Leukocyte Esterase Urine RBC Urine WBC Ur Squamous Epith Cells Urine Bacteria Hyaline Casts Salicylates Urine Opiates Screen Urine Fentanyl Screen Acetaminophen Ur Barbiturates Screen Ur Phencyclidine Scrn Ur Amphetamines Screen U Benzodiazepines Scrn Urine Cocaine Screen U Marijuana (THC) Screen Acetone, Qual COVID-19 ([facility]) COVID-19 [employer] 10/19/22 10/19/22 10/19/22 22:47 22:47 22:50 WBC RBC Hgb Hct MCV MCH MCHC RDW Plt Count MPV Immature Gran % (Auto) Neut % (Auto) Lymph % (Auto) Canadian % (Auto) Eos % (Auto) Baso % (Auto) Lymph # (Auto) Canadian # (Auto) Eos # (Auto) Baso # (Auto) Abs Immat Gran (auto) Absolute Neuts (auto) Absolute Nucleated RBC Nucleated RBC % (auto) VBG pH 7.43 VBG pCO2 35 VBG pO2 104 VBG HCO3 24 VBG O2 Saturation 99.0 VBG Base Excess 0.3 Sodium Potassium Chloride Carbon Dioxide Anion Gap BUN Creatinine Estim Creat Clear Calc Estimated GFR POC Glucose Random Glucose Fasting Glucose Calcium Total Bilirubin AST ALT Alkaline Phosphatase Total Protein Albumin Triglycerides Cholesterol LDL Cholesterol, Calc HDL Cholesterol TSH 2.91 Urine Color Urine Appearance Urine pH Ur Specific Mascot Urine Protein Urine Glucose (UA) Urine Ketones Urine Blood Urine Nitrite Ur Leukocyte Esterase Urine RBC Urine WBC Ur Squamous Epith Cells Urine Bacteria Hyaline Casts Salicylates < 5.0 L Urine Opiates Screen Urine Fentanyl Screen Acetaminophen < 17 Ur Barbiturates Screen Ur Phencyclidine Scrn Ur Amphetamines Screen U Benzodiazepines Scrn Urine Cocaine Screen U Marijuana (THC) Screen Acetone, Qual Small H COVID-19 ([facility]) COVID-19 [employer] App 10/19/22 10/20/22 10/20/22 23:48 01:25 01:48 WBC RBC Hgb Hct MCV MCH MCHC RDW Plt Count MPV Immature Gran % (Auto) Neut % (Auto) Lymph % (Auto) Canadian % (Auto) Eos % (Auto) Baso % (Auto) Lymph # (Auto) Canadian # (Auto) Eos # (Auto) Baso # (Auto) Abs Immat Gran (auto) Absolute Neuts (auto) Absolute Nucleated RBC Nucleated RBC % (auto) VBG pH VBG pCO2 VBG pO2 VBG HCO3 VBG O2 Saturation VBG Base Excess Sodium Potassium Chloride Carbon Dioxide Anion Gap BUN Creatinine Estim Creat Clear Calc Estimated GFR POC Glucose 275 H Random Glucose Fasting Glucose Calcium Total Bilirubin AST ALT Alkaline Phosphatase Total Protein Albumin Triglycerides Cholesterol LDL Cholesterol, Calc HDL Cholesterol TSH Urine Color Yellow Urine Appearance Clear Urine pH 6.0 Ur Specific Mascot >= 1.030 H Urine Protein 30 (1+) H Urine Glucose (UA) >=1000 H Urine Ketones 15 Urine Blood Trace H Urine Nitrite Negative Ur Leukocyte Esterase Negative Urine RBC 0-2 Urine WBC 0-5 Ur Squamous Epith Cells 0-2 Urine Bacteria None Seen Hyaline Casts 0-2 Salicylates Urine Opiates Screen Urine Fentanyl Screen Acetaminophen Ur Barbiturates Screen Ur Phencyclidine Scrn Ur Amphetamines Screen U Benzodiazepines Scrn Urine Cocaine Screen U Marijuana (THC) Screen Acetone, Qual COVID-19 ([facility]) Negative COVID-19 Clin Com See Note 10/20/22 10/20/22 10/20/22 01:48 06:56 13:14 WBC RBC Hgb Hct MCV MCH MCHC RDW Plt Count MPV Immature Gran % (Auto) Neut % (Auto) Lymph % (Auto) Canadian % (Auto) Eos % (Auto) Baso % (Auto) Lymph # (Auto) Canadian # (Auto) Eos # (Auto) Baso # (Auto) Abs Immat Gran (auto) Absolute Neuts (auto) Absolute Nucleated RBC Nucleated RBC % (auto) VBG pH VBG pCO2 VBG pO2 VBG HCO3 VBG O2 Saturation VBG Base Excess Sodium Potassium Chloride Carbon Dioxide Anion Gap BUN Creatinine Estim Creat Clear Calc Estimated GFR POC Glucose 246 H 324 H Random Glucose Fasting Glucose Calcium Total Bilirubin AST ALT Alkaline Phosphatase Total Protein Albumin Triglycerides Cholesterol LDL Cholesterol, Calc HDL Cholesterol TSH Urine Color Urine Appearance Urine pH Ur Specific M[place] Urine Protein Urine Glucose (UA) Urine Ketones Urine Blood Urine Nitrite Ur Leukocyte Esterase Urine RBC Urine WBC Ur Squamous Epith Cells Urine Bacteria Hyaline Casts Salicylates Urine Opiates Screen Not Detected Urine Fentanyl Screen Not Detected Acetaminophen Ur Barbiturates Screen Not Detected Ur Phencyclidine Scrn Not Detected Ur Amphetamines Screen Not Detected U Benzodiazepines Scrn Not Detected Urine Cocaine Screen Not Detected U Marijuana (THC) Screen Not Detected Acetone, Qual COVID-19 ([facility]) COVID-19 [employer] Com 10/20/22 10/20/22 10/20/22 16:44 20:20 22:32 WBC RBC Hgb Hct MCV MCH MCHC RDW Plt Count MPV Immature Gran % (Auto) Neut % (Auto) Lymph % (Auto) Canadian % (Auto) Eos % (Auto) Baso % (Auto) Lymph # (Auto) Canadian # (Auto) Eos # (Auto) Baso # (Auto) Abs Immat Gran (auto) Absolute Neuts (auto) Absolute Nucleated RBC Nucleated RBC % (auto) VBG pH VBG pCO2 VBG pO2 VBG HCO3 VBG O2 Saturation VBG Base Excess Sodium Potassium Chloride Carbon Dioxide Anion Gap BUN Creatinine Estim Creat Clear Calc Estimated GFR POC Glucose 395 H* 352 H* 367 H* Random Glucose Fasting Glucose Calcium Total Bilirubin AST ALT Alkaline Phosphatase Total Protein Albumin Triglycerides Cholesterol LDL Cholesterol, Calc HDL Cholesterol TSH Urine Color Urine Appearance Urine pH Ur Specific [place] Urine Protein Urine Glucose (UA) Urine Ketones Urine Blood Urine Nitrite Ur Leukocyte Esterase Urine RBC Urine WBC Ur Squamous Epith Cells Urine Bacteria Hyaline Casts Salicylates Urine Opiates Screen Urine Fentanyl Screen Acetaminophen Ur Barbiturates Screen Ur Phencyclidine Scrn Ur Amphetamines Screen U Benzodiazepines Scrn Urine Cocaine Screen U Marijuana (THC) Screen Acetone, Qual COVID-19 ([facility]) COVID-19 [employer] App 10/21/22 10/21/22 10/21/22 07:21 08:21 13:12 WBC RBC Hgb Hct MCV MCH MCHC RDW Plt Count MPV Immature Gran % (Auto) Neut % (Auto) Lymph % (Auto) Canadian % (Auto) Eos % (Auto) Baso % (Auto) Lymph # (Auto) Canadian # (Auto) Eos # (Auto) Baso # (Auto) Abs Immat Gran (auto) Absolute Neuts (auto) Absolute Nucleated RBC Nucleated RBC % (auto) VBG pH VBG pCO2 VBG pO2 VBG HCO3 VBG O2 Saturation VBG Base Excess Sodium 131 L Potassium 3.8 Chloride 96 Carbon Dioxide 26 Anion Gap 13 BUN 20 H Creatinine 1.02 Estim Creat Clear Calc 102.3 Estimated GFR > 60 POC Glucose 233 H 388 H* Random Glucose Fasting Glucose 222 H Calcium 8.8 Total Bilirubin 0.8 AST 14 ALT 15 Alkaline Phosphatase 59 Total Protein 6.0 L Albumin 3.8 Triglycerides 463 Cholesterol 196 LDL Cholesterol, Calc TNP HDL Cholesterol 27 TSH Urine Color Urine Appearance Urine pH Ur Specific Mascot Urine Protein Urine Glucose (UA) Urine Ketones Urine Blood Urine Nitrite Ur Leukocyte Esterase Urine RBC Urine WBC Ur Squamous Epith Cells Urine Bacteria Hyaline Casts Salicylates Urine Opiates Screen Urine Fentanyl Screen Acetaminophen Ur Barbiturates Screen Ur Phencyclidine Scrn Ur Amphetamines Screen U Benzodiazepines Scrn Urine Cocaine Screen U Marijuana (THC) Screen Acetone, Qual COVID-19 ([facility]) COVID-19 [employer] App 10/21/22 10/21/22 10/22/22 17:09 22:25 08:19 WBC RBC Hgb Hct MCV MCH MCHC RDW Plt Count MPV Immature Gran % (Auto) Neut % (Auto) Lymph % (Auto) Canadian % (Auto) Eos % (Auto) Baso % (Auto) Lymph # (Auto) Canadian # (Auto) Eos # (Auto) Baso # (Auto) Abs Immat Gran (auto) Absolute Neuts (auto) Absolute Nucleated RBC Nucleated RBC % (auto) VBG pH VBG pCO2 VBG pO2 VBG HCO3 VBG O2 Saturation VBG Base Excess Sodium Potassium Chloride Carbon Dioxide Anion Gap BUN Creatinine Estim Creat Clear Calc Estimated GFR POC Glucose 307 H 307 H 248 H Random Glucose Fasting Glucose Calcium Total Bilirubin AST ALT Alkaline Phosphatase Total Protein Albumin Triglycerides Cholesterol LDL Cholesterol, Calc HDL Cholesterol TSH Urine Color Urine Appearance Urine pH Ur Specific [place] Urine Protein Urine Glucose (UA) Urine Ketones Urine Blood Urine Nitrite Ur Leukocyte Esterase Urine RBC Urine WBC Ur Squamous Epith Cells Urine Bacteria Hyaline Casts Salicylates Urine Opiates Screen Urine Fentanyl Screen Acetaminophen Ur Barbiturates Screen Ur Phencyclidine Scrn Ur Amphetamines Screen U Benzodiazepines Scrn Urine Cocaine Screen U Marijuana (THC) Screen Acetone, Qual COVID-19 ([facility]) COVID-19 [employer] App 10/22/22 10/22/22 10/22/22 13:16 17:43 21:35 WBC RBC Hgb Hct MCV MCH MCHC RDW Plt Count MPV Immature Gran % (Auto) Neut % (Auto) Lymph % (Auto) Canadian % (Auto) Eos % (Auto) Baso % (Auto) Lymph # (Auto) Canadian # (Auto) Eos # (Auto) Baso # (Auto) Abs Immat Gran (auto) Absolute Neuts (auto) Absolute Nucleated RBC Nucleated RBC % (auto) VBG pH VBG pCO2 VBG pO2 VBG HCO3 VBG O2 Saturation VBG Base Excess Sodium Potassium Chloride Carbon Dioxide Anion Gap BUN Creatinine Estim Creat Clear Calc Estimated GFR POC Glucose 415 H* 245 H 279 H Random Glucose Fasting Glucose Calcium Total Bilirubin AST ALT Alkaline Phosphatase Total Protein Albumin Triglycerides Cholesterol LDL Cholesterol, Calc HDL Cholesterol TSH Urine Color Urine Appearance Urine pH Ur Specific M[place] Urine Protein Urine Glucose (UA) Urine Ketones Urine Blood Urine Nitrite Ur Leukocyte Esterase Urine RBC Urine WBC Ur Squamous Epith Cells Urine Bacteria Hyaline Casts Salicylates Urine Opiates Screen Urine Fentanyl Screen Acetaminophen Ur Barbiturates Screen Ur Phencyclidine Scrn Ur Amphetamines Screen U Benzodiazepines Scrn Urine Cocaine Screen U Marijuana (THC) Screen Acetone, Qual COVID-19 ([facility]) COVID-19 [employer] App 10/23/22 10/23/22 10/23/22 09:06 13:12 17:48 WBC RBC Hgb Hct MCV MCH MCHC RDW Plt Count MPV Immature Gran % (Auto) Neut % (Auto) Lymph % (Auto) Canadian % (Auto) Eos % (Auto) Baso % (Auto) Lymph # (Auto) Canadian # (Auto) Eos # (Auto) Baso # (Auto) Abs Immat Gran (auto) Absolute Neuts (auto) Absolute Nucleated RBC Nucleated RBC % (auto) VBG pH VBG pCO2 VBG pO2 VBG HCO3 VBG O2 Saturation VBG Base Excess Sodium Potassium Chloride Carbon Dioxide Anion Gap BUN Creatinine Estim Creat Clear Calc Estimated GFR POC Glucose 161 H 234 H 260 H Random Glucose Fasting Glucose Calcium Total Bilirubin AST ALT Alkaline Phosphatase Total Protein Albumin Triglycerides Cholesterol LDL Cholesterol, Calc HDL Cholesterol TSH Urine Color Urine Appearance Urine pH Ur Specific M[place] Urine Protein Urine Glucose (UA) Urine Ketones Urine Blood Urine Nitrite Ur Leukocyte Esterase Urine RBC Urine WBC Ur Squamous Epith Cells Urine Bacteria Hyaline Casts Salicylates Urine Opiates Screen Urine Fentanyl Screen Acetaminophen Ur Barbiturates Screen Ur Phencyclidine Scrn Ur Amphetamines Screen U Benzodiazepines Scrn Urine Cocaine Screen U Marijuana (THC) Screen Acetone, Qual COVID-19 ([facility]) COVID-19 [employer] 10/23/22 10/24/22 10/24/22 20:45 08:08 12:50 WBC RBC Hgb Hct MCV MCH MCHC RDW Plt Count MPV Immature Gran % (Auto) Neut % (Auto) Lymph % (Auto) Canadian % (Auto) Eos % (Auto) Baso % (Auto) Lymph # (Auto) Canadian # (Auto) Eos # (Auto) Baso # (Auto) Abs Immat Gran (auto) Absolute Neuts (auto) Absolute Nucleated RBC Nucleated RBC % (auto) VBG pH VBG pCO2 VBG pO2 VBG HCO3 VBG O2 Saturation VBG Base Excess Sodium Potassium Chloride Carbon Dioxide Anion Gap BUN Creatinine Estim Creat Clear Calc Estimated GFR POC Glucose 292 H 162 H 288 H Random Glucose Fasting Glucose Calcium Total Bilirubin AST ALT Alkaline Phosphatase Total Protein Albumin Triglycerides Cholesterol LDL Cholesterol, Calc HDL Cholesterol TSH Urine Color Urine Appearance Urine pH Ur Specific M[place] Urine Protein Urine Glucose (UA) Urine Ketones Urine Blood Urine Nitrite Ur Leukocyte Esterase Urine RBC Urine WBC Ur Squamous Epith Cells Urine Bacteria Hyaline Casts Salicylates Urine Opiates Screen Urine Fentanyl Screen Acetaminophen Ur Barbiturates Screen Ur Phencyclidine Scrn Ur Amphetamines Screen U Benzodiazepines Scrn Urine Cocaine Screen U Marijuana (THC) Screen Acetone, Qual COVID-19 ([facility]) COVID-19 Clin Com 10/24/22 10/24/22 10/25/22 17:38 21:02 08:50 WBC RBC Hgb Hct MCV MCH MCHC RDW Plt Count MPV Immature Gran % (Auto) Neut % (Auto) Lymph % (Auto) Canadian % (Auto) Eos % (Auto) Baso % (Auto) Lymph # (Auto) Canadian # (Auto) Eos # (Auto) Baso # (Auto) Abs Immat Gran (auto) Absolute Neuts (auto) Absolute Nucleated RBC Nucleated RBC % (auto) VBG pH VBG pCO2 VBG pO2 VBG HCO3 VBG O2 Saturation VBG Base Excess Sodium Potassium Chloride Carbon Dioxide Anion Gap BUN Creatinine Estim Creat Clear Calc Estimated GFR POC Glucose 185 H 307 H 122 H Random Glucose Fasting Glucose Calcium Total Bilirubin AST ALT Alkaline Phosphatase Total Protein Albumin Triglycerides Cholesterol LDL Cholesterol, Calc HDL Cholesterol TSH Urine Color Urine Appearance Urine pH Ur Specific M[place] Urine Protein Urine Glucose (UA) Urine Ketones Urine Blood Urine Nitrite Ur Leukocyte Esterase Urine RBC Urine WBC Ur Squamous Epith Cells Urine Bacteria Hyaline Casts Salicylates Urine Opiates Screen Urine Fentanyl Screen Acetaminophen Ur Barbiturates Screen Ur Phencyclidine Scrn Ur Amphetamines Screen U Benzodiazepines Scrn Urine Cocaine Screen U Marijuana (THC) Screen Acetone, Qual COVID-19 ([facility]) COVID-19 Clin Com DS: Summary Hospital Course Hospital Course: Subjective Notes: Conditional Voluntary Guardianship: Yes (Mother Nunu Nugent [phone]. Unclear degree of guardianship) Narrative: Pt presented via 911. He is extremely pleasant, unusual prosody during interview and very focused and interested on geographic areas and travel c/w ASD. D iagnosis of bipolar disorder and Autism spectrum disorder. Reports he left his home town of [place], [place] 1 week ago and started traveling. Was in [facility] with a friend, then [place], and then [facility] waiting t bus as part of travel back to [place]. Decied to go to the mall and missed his bus. Then went to a hotel his mom paid for- he got help from the police to get to the motel. Walked from there and felt depressed and SI, saw [facility] as he passed by there while walking and it was closed. As he felt depressed and SI he called 911 and [place] [facility] [place]. Reports he has been manic lateley- no sleep, elated, travels impulsively and gets into arguments when he usually does not. Gave example of being escorted from sporting event in [facility] because he tried to enter for free (Lacrosse game at [employer]). Reports he can also set off fire alarms when he feels scared or manic. Now more depressed. No psychosis. Wants to get back on meds and back to [place]. Does appear to know his medication regimen well. Depakote 500mg tid, trazodone 50mg hs, buspirone 10mg bid, abilify maintenna 400mg monthly (reports last given 10/09). Has been without medications x 3-4 days- mental health, diabetes, thryroid, HTN. PCP is Dr. White [facility] [place],[phone]. Closed on Sundays. Team will need to call Saturday and confirm med doses, especially insulin around meals and also lantus 80 units twice daily versus night only. HOSPITAL COURSE On the unit, pt was admitted on a CV and placed on 15 minutes checks for safety. Pt denied suicidal or homicidal ideation. He reports impulsive coming out to [facility] despite family planning for him to return to home [facility]. We discussed risks, benefits and alternative treatment options. Pt was restarted on [facility] medications including depakote, and abilify. Collateral information was gathered from his mother who reported pt appeared to be at baseline. Pt denied visual or auditory hallucinations. He did not appear to be internally preoccupied. No overt delusional content noted or reported. There were no incidences of disruptive behaviors nor need for restraints. Pt was visible on the unit, social with peers.Pt was sleeping and eating well. Status at Discharge Cognitive/behavioral status at discharge: Pt with bright, non labile affect. No overt delusional or psychosis noted or reported. No SI/HI. No signs of aggression towards self or others. Functional status at discharge: independent ambulation Overall status at discharge: patient is progressing back to baseline Time Spent with Patient Time attestation: Total time managing care of this patient today ____ minutes. Discharge Plan Discharge Anticipated Discharge Date/Time: 10/25/22 09:21 Patient Disposition: Home, Self-Care Discharge Diagnosis: ASD Bipolar Disorder Referrals: Kathleen Gonzalez (Therapy) [Other] - 10/30/22 10:[address] Lucio (Psychiatry) [Other] - 11/02/22 2:30 pm Dilshad Burk (Nurse) [Other] - 11/06/22 1:00 pm (this appointment is to receive your injection) Easton White [Other] - 11/01/22 11:45 am (PCP DR. White appointment 11/01/2022 @11:45am) Discharge Medications: New carvedilol 25 mg Tablet 25 mg PO BID Qty: 0 0RF Protocol: Hold for SBP/HR < HOLD for SBP < : 90 HOLD for HR < : 60 atorvastatin 20 mg Tablet 20 mg PO DAILY Qty: 0 0RF amlodipine 10 mg Tablet 10 mg PO DAILY Qty: 0 0RF Protocol: Hold for SBP< HOLD for SBP < : 90 lisinopril 40 mg Tablet 40 mg PO DAILY Qty: 0 0RF Protocol: Hold for SBP< HOLD for SBP < : 90 Continued trazodone 50 mg tablet 50 mg PO BEDTIME divalproex 500 mg tablet,delayed release (DR/EC) 500 mg PO TID metformin 1,000 mg tablet 1,000 mg PO DAILY buspirone 10 mg tablet 10 mg PO BID insulin glargine [Basaglar KwikPen U-100 Insulin] 100 unit/mL (3 mL) insulin pen 80 unit subcut BID benztropine 0.5 mg tablet 1.5 mg PO BID levothyroxine 75 mcg tablet 75 mcg PO DAILY@0600 pantoprazole 40 mg tablet,delayed release (DR/EC) 40 mg PO DAILY hydrochlorothiazide 25 mg tablet 25 mg PO DAILY Abilify Maintena 400 mg suspension,extended rel syring 400 mg IM QMONTH Rx Instructions: EVERY 28 DAYS ascorbic acid (vitamin C) [Vitamin C] 500 mg Tablet 500 mg PO DAILY insulin aspart U-100 [Novolog FlexPen U-100 Insulin] 100 unit/mL (3 mL) Insulin Pen 14 unit SUBCUT TIDAC Discontinued carvedilol 25 mg tablet 25 mg PO BID atorvastatin 20 mg tablet 20 mg PO DAILY amlodipine 10 mg tablet 10 mg PO DAILY lisinopril 40 mg tablet 40 mg PO DAILY Discharge Orders: Discharge Order (Routine); Ordered 10/25/22 Ordered By: Yulissa De La Cruz Diet: Regular diet Activity on Discharge: As tolerated Stand Alone Forms: Patient Portal Discharge page, Community Support Care Plan Goals: 1. Maintain mood 2. No SI/HI 3. No aggression towards self or others. Health Concerns: Follow up with PCP Plan of Treatment: 1. Take medications as prescribed 2. Go to nearest ED or call 911 in event of emergency Assessment: Pt with bright, non labile affect. No SI/HI. No psychosis or delusions. Pt sleeping through the night. No behavioral concerns. No signs of aggression towards self or others. Discharge Date/Time: 10/25/22 11:45
[2022-10-25] MEDS: carvediloL 25 MG TABLET PO (09:30)
[2022-10-25] MEDS: metFORMIN HCl 1,000 MG TABLET 1000 MG PO (09:30)
[2022-10-25] MEDS: Benztropine Mesylate 0.5 MG TABLET PO (09:30)
[2022-10-25] MEDS: Divalproex Sodium 500 MG TABLET.DR PO (09:30)
[2022-10-25] MEDS: Insulin Glargine,Hum.rec.anlog 100 UNIT/ML 10 ML VIAL 75 UNIT SUBCUT (09:30)
[2022-10-25] MEDS: amLODIPine Besylate 10 MG TABLET PO (09:30)
[2022-10-25] MEDS: lisinopriL 40 MG TABLET PO (09:30)
[2022-10-25] MEDS: busPIRone HCl 10 MG TABLET PO (09:30)
[2022-10-25] MEDS: Atorvastatin Calcium 20 MG TABLET PO (09:31)
[2022-10-25] MEDS: hydroCHLOROthiazide 25 MG TABLET PO (09:31)
[2022-10-25] MEDS: Ascorbic Acid 500 MG TABLET PO (09:31)
== END 2022-10-25 11:45 | disposition home or self-care (01) | DRG 885 ==
LOC: HO.ED 10-20 18:09 → HO.PADLT16 10-20 23:13
PROVIDERS: Admitting Provider Psychiatry & Neurology Psychiatry; Emergency Provider Emergency Medicine Emergency Medical Services; Visit Provider Social Worker
DX: F31.9 Bipolar disorder, unspecified (principal); R45.851 Suicidal ideations; F84.0 Autistic disorder; E03.9 Hypothyroidism, unspecified; E11.65 Type 2 diabetes mellitus with hyperglycemia; Z91.148 Patient's other noncompliance with medication regimen for other reason; Z20.822 Contact with and (suspected) exposure to COVID-19; Z88.0 Allergy status to penicillin; Z79.4 Long term (current) use of insulin; Z79.84 Long term (current) use of oral hypoglycemic drugs; Z79.890 Hormone replacement therapy; Z79.899 Other long term (current) drug therapy
CPT/HCPCS: 36415; 80053; 80061; 80143; 80179; 80307; 81001; 81003; 82009; 82803; 82947; 84443; 85025; 87635; 93005; 99285; S9485